=== PATIENT | male | born 1960 ===

== ENCOUNTER 2021-07-27 06:20 | Inpatient (IN) | payer SELFPAY ==
[2021-07-27] MEDS ORDERED: ONDANSETRON 4 MG/2 ML INJ IV ONE (07:27)
[2021-07-27] MEDS ORDERED: ACETAMINOPHEN 500 MG TAB PO ONE (07:27)
[2021-07-27] MEDS ORDERED: SODIUM CHLORIDE 0.9% 1000 ML 1,000 ML IV ONE (07:27)
--- NOTE | 2021-07-27 07:30 | Emergency Department Report ---
ED General Adult HPI - General Chief complaint: Weakness Stated complaint: WEAKNESS/LOSS OF APPETITE Time Seen by Provider: 07/27/21 07:17 Source: patient Mode of arrival: Ambulatory Limitations: Language Barrier - History of Present Illness Initial comments: Patient is 60 years old male with no significant past medical history according to him. Patient presented to the ER complaining of fever, cough and shortness of breath for approximately 13 days. Patient stated that he is unable to eat or drink for the last few days. Patient stated that he tested positive for Covid recently. He is complaining of epigastric abdominal pain also. - Related Data Previous Rx's Medication Instructions Recorded Last Taken Type Azithromycin [Zithromax Z-KRISTEN] 250 mg PO DAILY 1 Days tab 07/27/21 Unknown Rx Ondansetron [Zofran Odt] 4 mg PO Q8HR PRN #14 tab.rapdis 07/27/21 Unknown Rx Prednisone [predniSONE 10 mg 10 mg PO .TAPER #1 tab.ds.pk 07/27/21 Unknown Rx (6-Day Pack, 21 Tabs)] Allergies Allergy/AdvReac Type Severity Reaction Status Date / Time No Known Allergies Allergy Unverified 07/27/21 06:43 ED Review of Systems ROS: Stated complaint: WEAKNESS/LOSS OF APPETITE Other details as noted in HPI Comment: All other systems reviewed and negative Constitutional: chills, fever Respiratory: cough, shortness of breath. denies: SOB with exertion, wheezing Cardiovascular: denies: chest pain, palpitations Gastrointestinal: abdominal pain, nausea. denies: vomiting, diarrhea, constip ation, hematemesis, melena, hematochezia Musculoskeletal: denies: back pain Neurological: denies: headache, weakness ED Past Medical Hx - Past Medical History Previous Medical History?: No - Surgical History Past Surgical History?: No - Medications Home Medications: Home Medications Medication Instructions Recorded Confirmed Last Taken Type Azithromycin [Zithromax Z-KRISTEN] 250 mg PO DAILY 1 Days tab 07/27/21 Unknown Rx Ondansetron [Zofran Odt] 4 mg PO Q8HR PRN #14 tab.rapdis 07/27/21 Unknown Rx Prednisone [predniSONE 10 mg 10 mg PO .TAPER #1 tab.ds.pk 07/27/21 Unknown Rx (6-Day Pack, 21 Tabs)] ED Physical Exam - General Limitations: Language Barrier General appearance: alert, in no apparent distress - Head Head exam: Present: atraumatic, normocephalic, normal inspection - Eye Eye exam: Present: normal appearance, PERRL - ENT ENT exam: Present: mucous membranes dry - Neck Neck exam: Present: normal inspection, full ROM. Absent: tenderness, meningismus - Respiratory Respiratory exam: Present: normal lung sounds bilaterally - Cardiovascular Cardiovascular Exam: Present: regular rate, normal rhythm, normal heart sounds - GI/Abdominal GI/Abdominal exam: Present: soft, normal bowel sounds. Absent: distended, tenderness, guarding, rebound, rigid, organomegaly, mass, bruit, pulsatile mass, hernia - Extremities Exam Extremities exam: Present: normal inspection, full ROM, normal capillary refill. Absent: tenderness - Back Exam Back exam: Present: normal inspection, full ROM. Absent: CVA tenderness (R), CVA tenderness (L) - Neurological Exam Neurological exam: Present: alert, oriented X3, CN II-XII intact - Psychiatric Psychiatric exam: Present: normal mood - Skin Skin exam: Present: warm, intact, normal color ED Course Vital Signs 07/27/21 07/27/21 07/27/21 06:25 09:58 10:18 Temperature 100.0 F H 99.8 F H 100.2 F H Pulse Rate 85 86 Respiratory 18 16 26 H Rate Blood Pressure 150/78 Blood Pressure 168/92 [Left] O2 Sat by Pulse 96 93 89 Oximetry ED Medical Decision Making - Lab Data Result diagrams: 07/27/21 07:04 07/27/21 07:04 - Radiology Data Radiology results: report reviewed - Medical Decision Making Patient is 60 years old male with no significant past medical history according to him. Patient presented to the ER complaining of fever, cough and shortness of breath for approximately 13 days. Patient stated that he is unable to eat or drink for the last few days. Patient stated that he tested positive for Covid recently. He is complaining of epigastric abdominal pain also. Chest x-ray showed bilateral opacity concerning for pneumonia. Labs reviewed and is unremarkable. Patient remained stable in the ER with stable oxygen saturation of 96% on room air and above. No desaturation. Patient given prescription for Zithromax, prednisone and Zofran and advised to follow-up with his primary doctor in the next 2 to 3 days and to return to the ER if he develop any new symptoms. Unfortunately upon discharge patient noted to have an oxygen saturation of 91% and upon short walking patient oxygen saturation dropped to 88% on room air. Patient is obviously in acute respiratory failure with hypoxia tach secondary to COVID-19 pneumonia. I discussed the patient with Dr. Villalobos, she advised admit the patient to Dr. Steele. Critical Care Time: Yes Critical care time in (mins) excluding proc time.: 30 Critical care attestation.: If time is entered above; I have spent that time in minutes in the direct care of this critically ill patient, excluding procedure time. ED Disposition Clinical Impression: Generalized weakness, Acute nausea with nonbilious vomiting, Pneumonia due to COVID-19 virus, Acute respiratory failure with hypoxia Disposition: 09 ADMITTED INPATIENT Is pt being admited?: Yes Condition: Stable Instructions: Nausea, Adult, COVID-19, Fatigue, Community-Acquired Pneumonia, Adult, [id number], Bacterial Pneumonia (ED) Prescriptions: Prednisone [predniSONE 10 mg (6-Day Pack, 21 Tabs)] 10 mg PO .TAPER #1 tab.ds.pk Azithromycin [Zithromax Z-KRISTEN] 250 mg PO DAILY 1 Days tab Ondansetron [Zofran Odt] 4 mg PO Q8HR PRN #14 tab.rapdis PRN Reason: Nausea And Vomiting Referrals: PRIMARY CARE, [Primary Care Provider] - 3-5 Days
[2021-07-27 07:38] LABS: Basophils # (Auto) 0.1 K/mm3 (0.0-0.1); Basophils % (Auto) 0.7 % (0.0-1.8); Eosinophils % (Auto) 0.1 % (0.0-4.3); Hematocrit 43.3 % (35.5-45.6); Hemoglobin 14.9 gm/dl (11.8-15.2); Lymphocytes # (Auto) 1.6 K/mm3 (1.2-5.4); Lymphocytes % (Auto) 20.9 % (13.4-35.0); Mean Corpuscular HGB Conc 34 % (32-34); Mean Corpuscular Volume 93 fl (84-94); Monocytes # (Auto) 0.6 K/mm3 (0.0-0.8); Monocytes % (Auto) 7.7 % (0.0-7.3); Platelet Count 198 K/mm3 (140-440); Red Blood Count 4.66 M/mm3 (3.65-5.03); Red Cell Distribution Width 12.6 % (13.2-15.2)
[2021-07-27 07:54] LABS: Blood Urea Nitrogen 14 mg/dL (9-20); Calcium 8.3 mg/dL (8.4-10.2); Hemolysis Index 13
[2021-07-27 07:57] LABS: BUN/Creatinine Ratio 20
[2021-07-27 07:57] LABS: Alanine Aminotransferase 60 units/L (7-56); Albumin 3.5 g/dL (3.9-5); Bilirubin,Direct < 0.2 mg/dL (0-0.2)
--- NOTE | 2021-07-27 07:57 | XRay Report ---
CHEST 2 VIEWS INDICATION: Weakness. COMPARISON: None FINDINGS: Support devices: None. Heart: Within normal limits. Lungs/pleura: There are scattered bilateral airspace opacities concerning for atypical pneumonia or v iral infection. No pleural effusion or pneumothorax. Additional findings: None. IMPRESSION: Bilateral lung opacities concerning for atypical pneumonia. Signer Name: Jalen Talamantes Jr, MD Signed: 07/27/2021 7:53 AM Workstation Name: [id number]
[2021-07-27] MEDS ORDERED: oxyCODONE /ACETAMINOPHEN 5-325MG TAB PO PRN (11:21)
[2021-07-27] MEDS ORDERED: ALBUTEROL 2.5 MG/3 ML NEBU IH PRN (11:21)
[2021-07-27] MEDS ORDERED: ONDANSETRON 4 MG/2 ML INJ IV PRN (11:21)
[2021-07-27] MEDS ORDERED: DEXTROSE 50% IN WATER (25GM) 50 ML SYRINGE IV PRN (11:24)
--- NOTE | 2021-07-27 11:29 | History and Physical Report ---
History of Present Illness Date of examination: 07/27/21 Date of admission: 07/27/21 10:31 Chief complaint: Shortness of breath History of present illness: 60-year-old male with past medical history of hypertension, morbid obesity, unvaccinated for COVID-19 status presenting to the emergency department with complaint of increased shortness of breath. Patient states that symptoms started approximately 13 to 14 days ago. He tested positive for coronavirus at the time. He was advised to stay at home and recover by the physician that evaluated him. His symptoms have only gotten worse. Patient states that he has chest pain with inspiration, difficulty with exertion, unremitting fevers. On encounter, patient was resting comfortably. He stated he was feeling better than upon arrival. Of note, he denies obtaining covid 19 vaccination. ED Course: PMHx: hypertension, morbid obesity, unvaccinated for COVID-19 status PSHx: appendectomy FHx: reviewed ,noncontributory SHx: Tobacco use-denies ETOH Use-denies Recreational Drug Use-denies Past History Past Medical History: hypertension Past Surgical History: appendectomy Social history: no significant social history Family history: no significant family history Medications and Allergies Allergies Allergy/AdvReac Type Severity Reaction Status Date / Time No Known Allergies Allergy Unverified 07/27/21 06:43 Home Medications Medication Instructions Recorded Confirmed Last Taken Type Azithromycin [Zithromax Z-KRISTEN] 250 mg PO DAILY 1 Days tab 07/27/21 Unknown Rx Ondansetron [Zofran Odt] 4 mg PO Q8HR PRN #14 tab.rapdis 07/27/21 Unknown Rx Prednisone [predniSONE 10 mg 10 mg PO .TAPER #1 tab.ds.pk 07/27/21 Unknown Rx (6-Day Pack, 21 Tabs)] Active Meds: Active Medications Acetaminophen (Acetaminophen 325 Mg Tab) 650 mg PO Q4H PRN PRN Reason: Pain MILD(1-3)/Fever >100.5/ROSA Albuterol (Albuterol 2.5 Mg/3 Ml Nebu) 2.5 mg IH Q4HRT PRN PRN Reason: Shortness Of Breath Dexamethasone (Dexamethasone 4 Mg/Ml Vial) 6 mg IV Q24H MATIAS Stop: 08/06/21 11:59 Dextrose (Dextrose 50% In Water (25gm) 50 Ml Syringe) 50 ml IV Q30MIN PRN; Protocol PRN Reason: Hypoglycemia Enoxaparin Sodium (Enoxaparin 40 Mg/0.4 Ml Inj) 40 mg SUB-Q QDAY MATIAS Azithromycin (Zithromax/Ns) 500 mg in 250 mls @ 250 mls/hr IV Q24H MATIAS Ceftriaxone Sodium (Rocephin/Ns 1 Gm/50 Ml) 1 gm in 50 mls @ 100 mls/hr IV Q24H MATIAS; Protocol Sodium Chloride (Nacl 0.9% 1000 Ml) 1,000 mls @ 75 mls/hr IV DIRECT MATIAS Stop: 07/28/21 00:49 Insulin Glargine (Insulin Glargine 100 Units/Ml) 10 units SUB-Q QHS MATIAS Insulin Human Lispro (Insulin Lispro 100 Unit/Ml) 0 unit SUB-Q ACHS MATIAS; Protoc ol Ondansetron HCl (Ondansetron 4 Mg/2 Ml Inj) 4 mg IV Q8H PRN PRN Reason: Nausea And Vomiting Sodium Chloride (Sodium Chloride 0.9% 10 Ml Flush Syringe) 10 ml IV BID MATIAS Sodium Chloride (Sodium Chloride 0.9% 10 Ml Flush Syringe) 10 ml IV PRN PRN PRN Reason: LINE FLUSH Review of Systems All systems: negative Constitutional: fever Cardiovascular: chest pain, shortness of breath, dyspnea on exertion Exam - Physical Exam Narrative exam: Physical Exam: VITAL SIGNS: Reviewed. GENERAL: The patient appears normally developed, Vital signs as documented. Elevated BMI HEAD: No signs of head trauma. EYES: Pupils are equal. Extraocular motions intact. EARS: Hearing grossly intact. MOUTH: Oropharynx is normal. NECK: No adenopathy, no JVD. CHEST: Chest with clear breath sounds bilaterally. No wheezes, rales, or rhonchi. CARDIAC: Regular rate and rhythm. S1 and S2, without murmurs, gallops, or rubs. VASCULAR: No Edema. Peripheral pulses normal and equal in all extremities. ABDOMEN: Soft, non tender and non distended. No rebound or guarding, and no masses palpated. Bowel Sounds normal. MUSCULOSKELETAL: Good range of motion of all major joints. Extremities without clubbing, cyanosis or edema. NEUROLOGIC EXAM: Alert and oriented x4. no focal sensory or strength deficits. PSYCHIATRIC: Mood normal. SKIN: detail exam as documented in skin assessment - Constitutional Vitals: Temp Pulse Resp BP Pulse Ox 99.8 F H 79 24 132/67 98 07/27/21 11:15 07/27/21 11:15 07/27/21 11:15 07/27/21 11:15 07/27/21 11:15 Results - Labs CBC & Chem 7: 07/27/21 07:04 07/27/21 07:04 Labs: Laboratory Last Values WBC 7.8 K/mm3 (4.5-11.0) 07/27/21 07:04 RBC 4.66 M/mm3 (3.65-5.03) 07/27/21 07:04 Hgb 14.9 gm/dl (11.8-15.2) 07/27/21 07:04 Hct 43.3 % (35.5-45.6) 07/27/21 07:04 MCV 93 fl (84-94) 07/27/21 07:04 MCH 32 pg (28-32) 07/27/21 07:04 MCHC 34 % (32-34) 07/27/21 07:04 RDW 12.6 % (13.2-15.2) L 07/27/21 07:04 Plt Count 198 K/mm3 (140-440) 07/27/21 07:04 Lymph % (Auto) 20.9 % (13.4-35.0) 07/27/21 07:04 [place] % (Auto) 7.7 % (0.0-7.3) H 07/27/21 07:04 Eos % (Auto) 0.1 % (0.0-4.3) 07/27/21 07:04 Baso % (Auto) 0.7 % (0.0-1.8) 07/27/21 07:04 Lymph # (Auto) 1.6 K/mm3 (1.2-5.4) 07/27/21 07:04 [place] # (Auto) 0.6 K/mm3 (0.0-0.8) 07/27/21 07:04 Eos # (Auto) 0.0 K/mm3 (0.0-0.4) 07/27/21 07:04 Baso # (Auto) 0.1 K/mm3 (0.0-0.1) 07/27/21 07:04 Seg Neutrophils % 70.6 % (40.0-70.0) H 07/27/21 07:04 Seg Neutrophils # 5.5 K/mm3 (1.8-7.7) 07/27/21 07:04 Sodium 133 mmol/L (137-145) L 07/27/21 07:04 Potassium 4.0 mmol/L (3.6-5.0) 07/27/21 07:04 Chloride 100.1 mmol/L (98-107) 07/27/21 07:04 Carbon Dioxide 21 mmol/L (22-30) L 07/27/21 07:04 Anion Gap 16 mmol/L 07/27/21 07:04 BUN 14 mg/dL (9-20) 07/27/21 07:04 Creatinine 0.7 mg/dL (0.8-1.3) L 07/27/21 07:04 Estimated GFR > 60 ml/min 07/27/21 07:04 BUN/Creatinine Ratio 20 % 07/27/21 07:04 Glucose 179 mg/dL (75-100) H 07/27/21 07:04 Calcium 8.3 mg/dL (8.4-10.2) L 07/27/21 07:04 Total Bilirubin 0.40 mg/dL (0.1-1.2) 07/27/21 07:09 Direct Bilirubin < 0.2 mg/dL (0-0.2) 07/27/21 07:09 Indirect Bilirubin 0.2 mg/dL 07/27/21 07:09 AST 41 units/L (5-40) H 07/27/21 07:09 ALT 60 units/L (7-56) H 07/27/21 07:09 Alkaline Phosphatase 75 units/L (35-129) 07/27/21 07:09 Total Protein 7.1 g/dL (6.3-8.2) 07/27/21 07:09 Albumin 3.5 g/dL (3.9-5) L 07/27/21 07:09 Albumin/Globulin Ratio 1.0 % 07/27/21 07:09 Assessment and Plan Assessment and plan: #Acute hypoxic respiratory failure -Hypoxic on admission, currently requiring 2 L nasal cannula -Etiology likely COVID-19 pneumonia -Continuous telemetry and O2 saturation monitoring ordered -if patient worsens will consider pulm consultation. #COVID-19 pneumonia -CXR findings of bilateral lung opacities concerning for atypical pneumonia. -prophylactic anticoagulation based on d-dimer per hospital protocol -if procalcitonin is low, abx not needed -trend ferritin, d-dimer, CRP every 2-3 days -Decadron 6 mg IV daily x10 days ordered -Azithromycin IV/Rocephin IV -Remdesivir IV x 5 days -ID consulted will follow recommendations #Hypertension - start amlodipine 5 mg po daily and lisinopril 20 mg po daily - hydralazine 10 mg IV q6hr prn SBP > 160 #Type 2 diabetes with hyperglycemia -Hemoglobin A1c ordered -Basal bolus insulin regimen ordered Lantus 10 units nightly, sliding scale insulin ACHS #Morbid obesity -Calorie restricted diet #Advance care planning Disease education conducted, care plan discussed, diagnoses discussed, prognosis discussed, patient is full code, patient acknowledges understanding and agree with care plan, +30 minutes.
[2021-07-27] MEDS ORDERED: SODIUM CHLORIDE 0.9% 1000 ML 1,000 ML IV SCH (11:30)
--- NOTE | 2021-07-27 12:18 | Consultation ---
History of Present Illness - Reason for Consult Consult date: 07/27/21 COVID Requesting physician: BAHMAN MENON - History of Present Illness The patient is a 60-year-old male with no significant past medical history admitted with COVID-19 pneumonia. Low-grade fever. Hypoxic requiring nasal cannula at 2 L/min. Normal WBC, creatinine. Other labs pending. Review of Systems: reviewed in the chart, unable to obtain, minimize risk of transmission Medications and Allergies Allergies Allergy/AdvReac Type Severity Reaction Status Date / Time No Known Allergies Allergy Unverified 07/27/21 06:43 Home Medications Medication Instructions Recorded Confirmed Last Taken Type Azithromycin [Zithromax Z-KRISTEN] 250 mg PO DAILY 1 Days tab 07/27/21 Unknown Rx Ondansetron [Zofran Odt] 4 mg PO Q8HR PRN #14 tab.rapdis 07/27/21 Unknown Rx Prednisone [predniSONE 10 mg 10 mg PO .TAPER #1 tab.ds.pk 07/27/21 Unknown Rx (6-Day Pack, 21 Tabs)] Active Meds: Active Medications Acetaminophen (Acetaminophen 325 Mg Tab) 650 mg PO Q4H PRN PRN Reason: Pain MILD(1-3)/Fever >100.5/ROSA Albuterol (Albuterol 2.5 Mg/3 Ml Nebu) 2.5 mg IH Q4HRT PRN PRN Reason: Shortness Of Breath Dexamethasone (Dexamethasone 4 Mg/Ml Vial) 6 mg IV Q24H MATIAS Stop: 08/06/21 11:59 Dextrose (Dextrose 50% In Water (25gm) 50 Ml Syringe) 50 ml IV Q30MIN PRN; Protocol PRN Reason: Hypoglycemia Enoxaparin Sodium (Enoxaparin 40 Mg/0.4 Ml Inj) 40 mg SUB-Q QDAY MATIAS Azithromycin (Zithromax/Ns) 500 mg in 250 mls @ 250 mls/hr IV Q24H MATIAS Ceftriaxone Sodium (Rocephin/Ns 1 Gm/50 Ml) 1 gm in 50 mls @ 100 mls/hr IV Q24H MATIAS; Protocol Sodium Chloride (Nacl 0.9% 1000 Ml) 1,000 mls @ 75 mls/hr IV DIRECT MATIAS Stop: 07/28/21 00:49 REMDESIVIR 200 mg/ Sodium (Chloride) 250 mls @ 500 mls/hr IV ONCE ONE Stop: 07/27/21 12:44 REMDESIVIR 100 mg/ Sodium (Chloride) 250 mls @ 500 mls/hr IV Q24HR@2100 MATIAS Stop: 07/31/21 21:29 Insulin Glargine (Insulin Glargine 100 Units/Ml) 10 units SUB-Q QHS MATIAS Insulin Human Lispro (Insulin Lispro 100 Unit/Ml) 0 unit SUB-Q ACHS MATIAS; Protocol Ondansetron HCl (Ondansetron 4 Mg/2 Ml Inj) 4 mg IV Q8H PRN PRN Reason: Nausea And Vomiting Sodium Chloride (Sodium Chloride 0.9% 10 Ml Flush Syringe) 10 ml IV BID MATIAS Sodium Chloride (Sodium Chloride 0.9% 10 Ml Flush Syringe) 10 ml IV PRN PRN PRN Reason: LINE FLUSH Sodium Chloride (Sodium Chloride 0.9% 50 Ml Ivpb) 50 ml IV Q24HR@2100 MATIAS Stop: 07/31/21 21:01 Physical Examination - Physical Exam Narrative exam: Physical Exam (reviewed in chart to minimize risk of transmission) Constitutional: deferred Head, Ears, Nose: deferred Eyes: deferred Neck: deferred Oral: deferred Cardiovascular: deferred Respiratory: deferred GI: deferred Musculoskeletal: deferred Skin: deferred Hem/Lymphatic: deferred Psych: deferred Neurological: deferred - Constitutional Vitals: Vital Signs Temp Pulse Resp BP Pulse Ox 99.8 F H 79 24 132/67 97 07/27/21 11:39 07/27/21 11:39 07/27/21 11:39 07/27/21 11:39 07/27/21 11:39 Temperature -Last 24 Hours Temperature 99.8 F Temperature 99.8 F Temperature 100.2 F Temperature 99.8 F Temperature 100.0 F Results - Labs CBC & Chem 7: 07/27/21 07:04 07/27/21 07:04 Labs: Abnormal lab results 07/27/21 07/27/21 07/27/21 Range/Units 07:04 07:04 07:09 RDW 12.6 L (13.2-15.2) % [place] % (Auto) 7.7 H (0.0-7.3) % Seg Neutrophils % 70.6 H (40.0-70.0) % Sodium 133 L (137-145) mmol/L Carbon Dioxide 21 L (22-30) mmol/L Creatinine 0.7 L (0.8-1.3) mg/dL Glucose 179 H (75-100) mg/dL Calcium 8.3 L (8.4-10.2) mg/dL AST 41 H (5-40) units/L ALT 60 H (7-56) units/L Albumin 3.5 L (3.9-5) g/dL - Imaging and Cardiology Chest x-ray: report reviewed Assessment and Plan Cultures: SARS CoV2 PCR: Positive as outpatient. Pending here A/P: 60/M with: #Bilateral pneumonia: Secondary to COVID-19 #Acute hypoxic respiratory failure: Requiring nasal cannula #Transaminitis #Morbid Obesity Recs: -IV/PO Dexamethasone x 10 days -IV remdesivir x 5 days ordered -prophylactic anticoagulation based on d-dimer per hospital protocol -if procalcitonin is low, abx not needed -trend ferritin, d-dimer, CRP every 2-3 days Nestor Rutledge MD, FACP [facility] O: [phone] F: [phone]
[2021-07-27] MEDS: INSULIN LISPRO 100 UNIT/ML SUB-Q SCH ×3 (12:21→22:04)
[2021-07-27] MEDS: dexAMETHasone 4 MG/ML VIAL IV SCH (12:44)
[2021-07-27] MEDS: cefTRIAXone/NS 1 GM/50 ML 1 GM/50 ML BAG IV SCH (12:44)
[2021-07-27] MEDS: ENOXAPARIN 40 MG/0.4 ML INJ SUB-Q SCH (12:45)
[2021-07-27] MEDS: AZITHROMYCIN/NS 500 MG/250 ML 500 MG/250 ML BAG IV SCH (13:55)
[2021-07-27] MEDS ORDERED: REMDESIVIR 200 MG in SODIUM CHLORIDE 0.9% 250ML 250 ML IV ONE (14:00)
[2021-07-27 14:34] LABS: Bilirubin,Urine NEG (Negative); Blood,Urine NEG (Negative); Color,Urine Yellow (Yellow); Mucus,Urine FEW /HPF; Urobilinogen,Urine < 2.0 mg/dL (<2.0)
[2021-07-27 14:43] LABS: RBC,Urine < 1.0 /HPF (0.0-6.0)
[2021-07-27] MEDS: ACETAMINOPHEN 325 MG TAB PO PRN ×2 (15:55→22:04)
[2021-07-27] MEDS: SODIUM CHLORIDE 0.9% 50 ML IVPB IV SCH (15:57)
[2021-07-27] MEDS: INSULIN GLARGINE 100 UNITS/ML SUB-Q SCH (22:04)
[2021-07-28 07:44] LABS: Basophils % (Auto) 0.3 % (0.0-1.8); Hemoglobin 14.1 gm/dl (11.8-15.2); Lymphocytes # (Auto) 1.3 K/mm3 (1.2-5.4); Lymphocytes % (Auto) 24.8 % (13.4-35.0); Mean Corpuscular HGB Conc 34 % (32-34); Mean Corpuscular Volume 93 fl (84-94); Monocytes # (Auto) 0.7 K/mm3 (0.0-0.8); Monocytes % (Auto) 13.8 % (0.0-7.3); Platelet Count 217 K/mm3 (140-440); Red Cell Distribution Width 13.1 % (13.2-15.2)
--- NOTE | 2021-07-28 07:51 | Progress Note ---
Assessment and Plan Assessment and plan: Hospital course to date 07/28: Patient had low-grade fever yesterday. Still has some chest discomfort during inspiration. Inflammatory markers on labs were elevated. We will continue supportive management with antibiotics, steroids, remdesivir. Saturating in mid 90's, Continue 2 L nasal cannula. Will attempt to de-escalate tomorrow. #Acute hypoxic respiratory failure -Hypoxic on admission, currently requiring 2 L nasal cannula -Etiology likely COVID-19 pneumonia -Continuous telemetry and O2 saturation monitoring ordered -if patient worsens will consider pulm consultation. #COVID-19 pneumonia -CXR findings of bilateral lung opacities concerning for atypical pneumonia. -prophylactic anticoagulation based on d-dimer per hospital protocol -if procalcitonin is low, abx not needed -trend ferritin, d-dimer, CRP every 2-3 days -Decadron 6 mg IV daily x10 days ordered -Azithromycin IV/Rocephin IV -Remdesivir IV x 5 days -ID consulted will follow recommendations #Hypertension - start amlodipine 5 mg po daily and lisinopril 20 mg po daily - hydralazine 10 mg IV q6hr prn SBP > 160 #Transaminitis -Liver markers slightly elevated on admission likely due to underlying inflammatory process -We will trend on serial hepatic panel #Type 2 diabetes with hyperglycemia -Hemoglobin A1c ordered -Basal bolus insulin regimen ordered Lantus 10 units nightly, sliding scale insulin ACHS #Morbid obesity -Calorie restricted diet #Advance care planning Disease education conducted, care plan discussed, diagnoses discussed, prognosis discussed, patient is full code, patient acknowledges understanding and agree with care plan, +30 minutes. History Interval history: Patient states that he is feeling worse this morning. Had a low-grade fever yesterday evening. He states that breathing is difficult especially when he has to exert himself. He states that his appetite is improved a little bit. He is drinking and eating more. Hospitalist Physical - Physical exam Narrative exam: Physical Exam: VITAL SIGNS: Reviewed. GENERAL: The patient appears normally developed, Vital signs as documented. Elevated BMI. Currently on 2 L nasal cannula HEAD: No signs of head trauma. EYES: Pupils are equal. Extraocular motions intact. EARS: Hearing grossly intact. MOUTH: Oropharynx is normal. NECK: No adenopathy, no JVD. CHEST: insp ronchi. CARDIAC: Regular rate and rhythm. S1 and S2, without murmurs, gallops, or rubs. VASCULAR: No Edema. Peripheral pulses normal and equal in all extremities. ABDOMEN: Soft, non tender and non distended. No rebound or guarding, and no masses palpated. Bowel Sounds normal. MUSCULOSKELETAL: Good range of motion of all major joints. Extremities without clubbing, cyanosis or edema. NEUROLOGIC EXAM: Alert and oriented x4. no focal sensory or strength deficits. PSYCHIATRIC: Mood normal. SKIN: detail exam as documented in skin assessment - Constitutional Vitals: Temp Pulse Resp BP Pulse Ox 98.8 F 68 22 153/78 93 07/28/21 05:39 07/28/21 05:39 07/28/21 05:39 07/28/21 05:39 07/28/21 05:39 Results - Labs CBC & Chem 7: 07/28/21 07:00 07/28/21 07:00 Labs: Laboratory Last Values WBC 5.0 K/mm3 (4.5-11.0) 07/28/21 07:00 RBC 4.50 M/mm3 (3.65-5.03) 07/28/21 07:00 Hgb 14.1 gm/dl (11.8-15.2) 07/28/21 07:00 Hct 42.0 % (35.5-45.6) 07/28/21 07:00 MCV 93 fl (84-94) 07/28/21 07:00 MCH 31 pg (28-32) 07/28/21 07:00 MCHC 34 % (32-34) 07/28/21 07:00 RDW 13.1 % (13.2-15.2) L 07/28/21 07:00 Plt Count 217 K/mm3 (140-440) 07/28/21 07:00 Lymph % (Auto) 24.8 % (13.4-35.0) 07/28/21 07:00 [place] % (Auto) 13.8 % (0.0-7.3) H 07/28/21 07:00 Eos % (Auto) 0.0 % (0.0-4.3) 07/28/21 07:00 Baso % (Auto) 0.3 % (0.0-1.8) 07/28/21 07:00 Lymph # (Auto) 1.3 K/mm3 (1.2-5.4) 07/28/21 07:00 [place] # (Auto) 0.7 K/mm3 (0.0-0.8) 07/28/21 07:00 Eos # (Auto) 0.0 K/mm3 (0.0-0.4) 07/28/21 07:00 Baso # (Auto) 0.0 K/mm3 (0.0-0.1) 07/28/21 07:00 Seg Neutrophils % 61.1 % (40.0-70.0) 07/28/21 07:00 Seg Neutrophils # 3.1 K/mm3 (1.8-7.7) 07/28/21 07:00 Sodium 133 mmol/L (137-145) L 07/27/21 07:04 Potassium 4.0 mmol/L (3.6-5.0) 07/27/21 07:04 Chloride 100.1 mmol/L (98-107) 07/27/21 07:04 Carbon Dioxide 21 mmol/L (22-30) L 07/27/21 07:04 Anion Gap 16 mmol/L 07/27/21 07:04 BUN 14 mg/dL (9-20) 07/27/21 07:04 Creatinine 0.7 mg/dL (0.8-1.3) L 07/27/21 07:04 Estimated GFR > 60 ml/min 07/27/21 07:04 BUN/Creatinine Ratio 20 % 07/27/21 07:04 Glucose 179 mg/dL (75-100) H 07/27/21 07:04 POC Glucose 156 mg/dL (70-105) H 07/28/21 05:38 Hemoglobin A1c 7.4 % (4-6) H 07/27/21 07:04 Calcium 8.3 mg/dL (8.4-10.2) L 07/27/21 07:04 Total Bilirubin 0.40 mg/dL (0.1-1.2) 07/27/21 07:09 Direct Bilirubin < 0.2 mg/dL (0-0.2) 07/27/21 07:09 Indirect Bilirubin 0.2 mg/dL 07/27/21 07:09 AST 41 units/L (5-40) H 07/27/21 07:09 ALT 60 units/L (7-56) H 07/27/21 07:09 Alkaline Phosphatase 75 units/L (35-129) 07/27/21 07:09 Total Protein 7.1 g/dL (6.3-8.2) 07/27/21 07:09 Albumin 3.5 g/dL (3.9-5) L 07/27/21 07:09 Albumin/Globulin Ratio 1.0 % 07/27/21 07:09 Urine Color Yellow (Yellow) 07/27/21 13:50 Urine Turbidity Clear (Clear) 07/27/21 13:50 Urine pH 6.0 (5.0-7.0) 07/27/21 13:50 Ur Specific [place] 1.018 (1.003-1.030) 07/27/21 13:50 Urine Protein 30 mg/dl mg/dL (Negative) 07/27/21 13:50 Urine Glucose (UA) 50 mg/dL (Negative) 07/27/21 13:50 Urine Ketones Tr mg/dL (Negative) 07/27/21 13:50 Urine Blood Neg (Negative) 07/27/21 13:50 Urine Nitrite Neg (Negative) 07/27/21 13:50 Urine Bilirubin Neg (Negative) 07/27/21 13:50 Urine Urobilinogen < 2.0 mg/dL (<2.0) 07/27/21 13:50 Ur Leukocyte Esterase Neg (Negative) 07/27/21 13:50 Urine WBC (Auto) 3.0 /HPF (0.0-6.0) 07/27/21 13:50 Urine RBC (Auto) < 1.0 /HPF (0.0-6.0) 07/27/21 13:50 U Epithel Cells (Auto) < 1.0 /HPF (0-13.0) 07/27/21 13:50 Urine Mucus Few /HPF 07/27/21 13:50 Microbiology: Microbiology 07/27/21 14:08 Peripheral/Venous Blood Culture - Preliminary Culture in Progress 07/27/21 13:38 Peripheral/Venous Blood Culture - Preliminary Culture in Progress Active Medications - Current Medications Current Medications: Generic Name Dose Route Start Last Admin Trade Name Freq PRN Reason Stop Dose Admin Acetaminophen 650 mg 07/27/21 11:21 07/27/21 22:04 Acetaminophen 325 Mg Tab PO 650 mg Q4H PRN Administration Pain MILD(1-3)/Fever >100.5/ROSA Albuterol 2.5 mg 07/27/21 11:21 Albuterol 2.5 Mg/3 Ml Nebu IH Q4HRT PRN Shortness Of Breath Dexamethasone 6 mg 07/27/21 12:00 07/27/21 12:44 Dexamethasone 4 Mg/Ml Vial IV 08/06/21 11:59 6 mg Q24H MATIAS Administration Dextrose 50 ml 07/27/21 11:24 Dextrose 50% In Water (25gm) 50 Ml Syringe IV Q30MIN PRN Hypoglycemia Protocol Enoxaparin Sodium 40 mg 07/27/21 12:00 07/27/21 12:45 Enoxaparin 40 Mg/0.4 Ml Inj SUB-Q 40 mg QDAY MATIAS Administration Azithromycin 500 mg in 250 mls @ 250 mls/hr 07/27/21 12:00 07/27/21 13:55 Zithromax/Ns IV 250 mls/hr Q24H MATIAS Administration Ceftriaxone Sodium 1 gm in 50 mls @ 100 mls/hr 07/27/21 12:00 07/27/21 13:20 Rocephin/Ns 1 Gm/50 Ml IV Infused Q24H MATIAS Infusion Protocol REMDESIVIR 100 mg/ Sodium 250 mls @ 500 mls/hr 07/28/21 21:00 Chloride IV 07/31/21 21:29 Q24HR@2100 MATIAS Insulin Glargine 10 units 07/27/21 22:00 07/27/21 22:04 Insulin Glargine 100 Units/Ml SUB-Q 10 units QHS MATIAS Administration Insulin Human Lispro 0 unit 07/27/21 11:30 07/27/21 22:04 Insulin Lispro 100 Unit/Ml SUB-Q 3 unit ACHS MATIAS Administration Protocol Ondansetron HCl 4 mg 07/27/21 11:21 Ondansetron 4 Mg/2 Ml Inj IV Q8H PRN Nausea And Vomiting Sodium Chloride 10 ml 07/27/21 22:00 07/27/21 22:06 Sodium Chloride 0.9% 10 Ml Flush Syringe IV 10 ml BID MATIAS Administration Sodium Chloride 10 ml 07/27/21 11:21 Sodium Chloride 0.9% 10 Ml Flush Syringe IV PRN PRN LINE FLUSH Sodium Chloride 50 ml 07/27/21 14:00 07/27/21 15:57 Sodium Chloride 0.9% 50 Ml Ivpb IV 07/31/21 21:01 50 ml Q24HR@2100 MATIAS Administration
[2021-07-28 08:09] LABS: Alanine Aminotransferase 57 units/L (7-56); Albumin 3.8 g/dL (3.9-5); Blood Urea Nitrogen 15 mg/dL (9-20); Calcium 8.2 mg/dL (8.4-10.2); Hemolysis Index 4
[2021-07-28 08:10] LABS: BUN/Creatinine Ratio 30
--- NOTE | 2021-07-28 12:09 | Progress Note ---
Assessment and Plan Cultures: SARS CoV2 PCR: Positive as outpatient. Pending here 07/27/2021 blood culture: In process A/P: 60/M with: #Bilateral pneumonia: Secondary to COVID-19 #Acute hypoxic respiratory failure: Requiring nasal cannula #Transaminitis #Morbid Obesity Recs: -continue IV/PO Dexamethasone x 10 days -continue IV remdesivir x 5 days -prophylactic anticoagulation based on d-dimer per hospital protocol -procalcitonin is low, abx not needed -trend ferritin, d-dimer, CRP every 2-3 days Nestor Rutledge MD, FACP [facility] ([facility] O: [phone] F: [phone] Subjective Date of service: 07/28/21 Interval history: Febrile yesterday, no fever today. Remains on oxygen by nasal cannula. Procalcitonin 0.08. Objective - Exam Narrative Exam: Physical Exam (reviewed in chart to minimize risk of transmission) Constitutional: deferred Head, Ears, Nose: deferred Eyes: deferred Neck: deferred Oral: deferred Cardiovascular: deferred Respiratory: deferred GI: deferred Musculoskeletal: deferred Skin: deferred Hem/Lymphatic: deferred Psych: deferred Neurological: deferred - Constitutional Vitals: Vital Signs Temp Pulse Resp BP Pulse Ox 98.8 F 68 22 153/78 94 07/28/21 05:39 07/28/21 05:39 07/28/21 05:39 07/28/21 05:39 07/28/21 10:53 Temperature -Last 24 Hours Temperature 98.8 F Temperature 99.7 F Temperature 102.1 F - Labs CBC & Chem 7: 07/28/21 07:00 07/28/21 07:00 Labs: Abnormal lab results 07/27/21 07/27/21 07/27/21 Range/Units 07:04 12:19 16:27 RDW (13.2-15.2) % [place] % (Auto) (0.0-7.3) % D-Dimer (0-234) ng/mlDDU Creatinine (0.8-1.3) mg/dL Glucose (75-100) mg/dL POC Glucose 129 H 168 H (70-105) mg/dL Hemoglobin A1c 7.4 H (4-6) % Calcium (8.4-10.2) mg/dL Ferritin (30.0-300.0) ng/mL AST (5-40) units/L ALT (7-56) units/L C-Reactive Protein (0.00-1.30) mg/dL Albumin (3.9-5) g/dL 07/27/21 07/28/21 07/28/21 Range/Units 21:57 05:38 07:00 RDW 13.1 L (13.2-15.2) % [place] % (Auto) 13.8 H (0.0-7.3) % D-Dimer (0-234) ng/mlDDU Creatinine (0.8-1.3) mg/dL Glucose (75-100) mg/dL POC Glucose 212 H 156 H (70-105) mg/dL Hemoglobin A1c (4-6) % Calcium (8.4-10.2) mg/dL Ferritin (30.0-300.0) ng/mL AST (5-40) units/L ALT (7-56) units/L C-Reactive Protein (0.00-1.30) mg/dL Albumin (3.9-5) g/dL 07/28/21 07/28/21 07/28/21 Range/Units 07:00 07:00 07:00 RDW (13.2-15.2) % [place] % (Auto) (0.0-7.3) % D-Dimer 364.54 H (0-234) ng/mlDDU Creatinine 0.5 L (0.8-1.3) mg/dL Glucose 151 H (75-100) mg/dL POC Glucose (70-105) mg/dL Hemoglobin A1c (4-6) % Calcium 8.2 L (8.4-10.2) mg/dL Ferritin 1653.0 H (30.0-300.0) ng/mL AST 47 H (5-40) units/L ALT 57 H (7-56) units/L C-Reactive Protein 15.80 H (0.00-1.30) mg/dL Albumin 3.8 L (3.9-5) g/dL 07/28/21 07/28/21 Range/Units 07:50 11:07 RDW (13.2-15.2) % [place] % (Auto) (0.0-7.3) % D-Dimer (0-234) ng/mlDDU Creatinine (0.8-1.3) mg/dL Glucose (75-100) mg/dL POC Glucose 138 H 151 H (70-105) mg/dL Hemoglobin A1c (4-6) % Calcium (8.4-10.2) mg/dL Ferritin (30.0-300.0) ng/mL AST (5-40) units/L ALT (7-56) units/L C-Reactive Protein (0.00-1.30) mg/dL Albumin (3.9-5) g/dL
[2021-07-28] MEDS: cefTRIAXone/NS 1 GM/50 ML 1 GM/50 ML BAG IV SCH (12:30)
[2021-07-28] MEDS: AZITHROMYCIN/NS 500 MG/250 ML 500 MG/250 ML BAG IV SCH (12:31)
--- NOTE | 2021-07-28 18:58 | Electrocardiograph Report ---
[facility] Test Date: 2021-07-27 Test Time: 07:03:16 Pat Name: MONTSERRAT RANDLE Department: Room: A354 Gender: M [employer]: BETHANY : 1960 Requested By: BELINDA GIRARD Order Number: [id number] Reading MD: Juan F Muller Measurements Intervals [place] Rate: 68 P: 36 AK: 133 QRS: -33 QRSD: 80 T: 24 QT: 393 QTc: 420 Interpretive Statements Sinus rhythm Frequent PVCs Left axis deviation No previous ECG available for comparison Electronically Signed On 07-28-2021 18:58:07 EDT by Juan F Muller
[2021-07-28] MEDS: SODIUM CHLORIDE 0.9% 50 ML IVPB IV SCH (21:41)
[2021-07-28] MEDS: REMDESIVIR 100 MG in SODIUM CHLORIDE 0.9% 250ML 250 ML IV SCH (21:41)
[2021-07-28] MEDS: INSULIN GLARGINE 100 UNITS/ML SUB-Q SCH (21:42)
[2021-07-28] MEDS: INSULIN LISPRO 100 UNIT/ML SUB-Q SCH (21:42)
[2021-07-28] MEDS: ACETAMINOPHEN 325 MG TAB PO PRN (21:45)
[2021-07-29 07:00] LABS: Alanine Aminotransferase 59 units/L (7-56); Albumin 3.7 g/dL (3.9-5); Blood Urea Nitrogen 18 mg/dL (9-20); Calcium 8.4 mg/dL (8.4-10.2); Hemolysis Index 19
[2021-07-29 07:16] LABS: BUN/Creatinine Ratio 30
--- NOTE | 2021-07-29 07:39 | Progress Note ---
Assessment and Plan Assessment and plan: Hospital course to date 07/28: Patient had low-grade fever yesterday. Still has some chest discomfort during inspiration. Inflammatory markers on labs were elevated. We will continue supportive management with antibiotics, steroids, remdesivir. Saturating in mid 90's, Continue 2 L nasal cannula. Will attempt to de-escalate tomorrow. #Acute hypoxic respiratory failure -Hypoxic on admission, currently requiring 2 L nasal cannula -Etiology likely COVID-19 pneumonia -Continuous telemetry and O2 saturation monitoring ordered -if patient worsens will consider pulm consultation. #COVID-19 pneumonia -CXR findings of bilateral lung opacities concerning for atypical pneumonia. -prophylactic anticoagulation based on d-dimer per hospital protocol -if procalcitonin is low, abx not needed -trend ferritin, d-dimer, CRP every 2-3 days -Decadron 6 mg IV daily x10 days ordered -Azithromycin IV/Rocephin IV -Remdesivir IV x 5 days -ID consulted will follow recommendations #Hypertension - start amlodipine 5 mg po daily and lisinopril 20 mg po daily - hydralazine 10 mg IV q6hr prn SBP > 160 #Transaminitis -Liver markers slightly elevated on admission likely due to underlying inflammatory process -We will trend on serial hepatic panel #Type 2 diabetes with hyperglycemia -Hemoglobin A1c ordered -Basal bolus insulin regimen ordered Lantus 10 units nightly, sliding scale insulin ACHS #Morbid obesity -Calorie restricted diet #Advance care planning Disease education conducted, care plan discussed, diagnoses discussed, prognosis discussed, patient is full code, patient acknowledges understanding and agree with care plan, +30 minutes. Hospitalist Physical - Physical exam Narrative exam: Physical Exam: VITAL SIGNS: Reviewed. GENERAL: The patient appears normally developed, Vital signs as documented. Elevated BMI. Currently on 2 L nasal cannula HEAD: No signs of head trauma. EYES: Pupils are equal. Extraocular motions intact. EARS: Hearing grossly intact. MOUTH: Oropharynx is normal. NECK: No adenopathy, no JVD. CHEST: insp ronchi. CARDIAC: Regular rate and rhythm. S1 and S2, without murmurs, gallops, or rubs. VASCULAR: No Edema. Peripheral pulses normal and equal in all extremities. ABDOMEN: Soft, non tender and non distended. No rebound or guarding, and no masses palpated. Bowel Sounds normal. MUSCULOSKELETAL: Good range of motion of all major joints. Extremities without clubbing, cyanosis or edema. NEUROLOGIC EXAM: Alert and oriented x4. no focal sensory or strength deficits. PSYCHIATRIC: Mood normal. SKIN: detail exam as documented in skin assessment - Constitutional Vitals: Temp Pulse Resp BP Pulse Ox 98.1 F 70 20 134/68 96 07/28/21 23:37 07/28/21 23:37 07/28/21 23:37 07/28/21 23:37 07/29/21 02:07 Results - Labs CBC & Chem 7: 07/28/21 07:00 07/29/21 06:05 Labs: Laboratory Last Values WBC 5.0 K/mm3 (4.5-11.0) 07/28/21 07:00 RBC 4.50 M/mm3 (3.65-5.03) 07/28/21 07:00 Hgb 14.1 gm/dl (11.8-15.2) 07/28/21 07:00 Hct 42.0 % (35.5-45.6) 07/28/21 07:00 MCV 93 fl (84-94) 07/28/21 07:00 MCH 31 pg (28-32) 07/28/21 07:00 MCHC 34 % (32-34) 07/28/21 07:00 RDW 13.1 % (13.2-15.2) L 07/28/21 07:00 Plt Count 217 K/mm3 (140-440) 07/28/21 07:00 Lymph % (Auto) 24.8 % (13.4-35.0) 07/28/21 07:00 [place] % (Auto) 13.8 % (0.0-7.3) H 07/28/21 07:00 Eos % (Auto) 0.0 % (0.0-4.3) 07/28/21 07:00 Baso % (Auto) 0.3 % (0.0-1.8) 07/28/21 07:00 Lymph # (Auto) 1.3 K/mm3 (1.2-5.4) 07/28/21 07:00 [place] # (Auto) 0.7 K/mm3 (0.0-0.8) 07/28/21 07:00 Eos # (Auto) 0.0 K/mm3 (0.0-0.4) 07/28/21 07:00 Baso # (Auto) 0.0 K/mm3 (0.0-0.1) 07/28/21 07:00 Seg Neutrophils % 61.1 % (40.0-70.0) 07/28/21 07:00 Seg Neutrophils # 3.1 K/mm3 (1.8-7.7) 07/28/21 07:00 D-Dimer 364.54 ng/mlDDU (0-234) H 07/28/21 07:00 Sodium 143 mmol/L (137-145) 07/29/21 06:05 Potassium 4.2 mmol/L (3.6-5.0) 07/29/21 06:05 Chloride 105.5 mmol/L (98-107) 07/29/21 06:05 Carbon Dioxide 24 mmol/L (22-30) 07/29/21 06:05 Anion Gap 18 mmol/L 07/29/21 06:05 BUN 18 mg/dL (9-20) 07/29/21 06:05 Creatinine 0.6 mg/dL (0.8-1.3) L 07/29/21 06:05 Estimated GFR > 60 ml/min 07/29/21 06:05 BUN/Creatinine Ratio 30 % 07/29/21 06:05 Glucose 101 mg/dL (75-100) H 07/29/21 06:05 POC Glucose 146 mg/dL (70-105) H 07/28/21 21:39 Hemoglobin A1c 7.4 % (4-6) H 07/27/21 07:04 Calcium 8.4 mg/dL (8.4-10.2) 07/29/21 06:05 Ferritin 1653.0 ng/mL (30.0-300.0) H 07/28/21 07:00 Total Bilirubin 0.30 mg/dL (0.1-1.2) 07/29/21 06:05 Direct Bilirubin < 0.2 mg/dL (0-0.2) 07/27/21 07:09 Indirect Bilirubin 0.2 mg/dL 07/27/21 07:09 AST 51 units/L (5-40) H 07/29/21 06:05 ALT 59 units/L (7-56) H 07/29/21 06:05 Alkaline Phosphatase 66 units/L (35-129) 07/29/21 06:05 C-Reactive Protein 15.80 mg/dL (0.00-1.30) H 07/28/21 07:00 Total Protein 7.4 g/dL (6.3-8.2) 07/29/21 06:05 Albumin 3.7 g/dL (3.9-5) L 07/29/21 06:05 Albumin/Globulin Ratio 1.0 % 07/29/21 06:05 Procalcitonin 0.08 ng/mL (<0.15) 07/28/21 07:00 Urine Color Yellow (Yellow) 07/27/21 13:50 Urine Turbidity Clear (Clear) 07/27/21 13:50 Urine pH 6.0 (5.0-7.0) 07/27/21 13:50 Ur Specific [place] 1.018 (1.003-1.030) 07/27/21 13:50 Urine Protein 30 mg/dl mg/dL (Negative) 07/27/21 13:50 Urine Glucose (UA) 50 mg/dL (Negative) 07/27/21 13:50 Urine Ketones Tr mg/dL (Negative) 07/27/21 13:50 Urine Blood Neg (Negative) 07/27/21 13:50 Urine Nitrite Neg (Negative) 07/27/21 13:50 Urine Bilirubin Neg (Negative) 07/27/21 13:50 Urine Urobilinogen < 2.0 mg/dL (<2.0) 07/27/21 13:50 Ur Leukocyte Esterase Neg (Negative) 07/27/21 13:50 Urine WBC (Auto) 3.0 /HPF (0.0-6.0) 07/27/21 13:50 Urine RBC (Auto) < 1.0 /HPF (0.0-6.0) 07/27/21 13:50 U Epithel Cells (Auto) < 1.0 /HPF (0-13.0) 07/27/21 13:50 Urine Mucus Few /HPF 07/27/21 13:50 Coronavirus (PCR) Positive (Negative) A 07/28/21 08:00 Microbiology: Microbiology 07/27/21 14:08 Peripheral/Venous Blood Culture - Preliminary NO GROWTH AFTER 24 HOURS 07/27/21 13:38 Peripheral/Venous Blood Culture - Preliminary NO GROWTH AFTER 24 HOURS Active Medications - Current Medications Current Medications: Generic Name Dose Route Start Last Admin Trade Name Freq PRN Reason Stop Dose Admin Acetaminophen 650 mg 07/27/21 11:21 07/28/21 21:45 Acetaminophen 325 Mg Tab PO 650 mg Q4H PRN Administration Pain MILD(1-3)/Fever >100.5/ROSA Albuterol 2.5 mg 07/27/21 11:21 Albuterol 2.5 Mg/3 Ml Nebu IH Q4HRT PRN Shortness Of Breath Dexamethasone 6 mg 07/27/21 12:00 07/27/21 12:44 Dexamethasone 4 Mg/Ml Vial IV 08/06/21 11:59 6 mg Q24H MATIAS Administration Dextrose 50 ml 07/27/21 11:24 Dextrose 50% In Water (25gm) 50 Ml Syringe IV Q30MIN PRN Hypoglycemia Protocol Enoxaparin Sodium 40 mg 07/27/21 12:00 07/27/21 12:45 Enoxaparin 40 Mg/0.4 Ml Inj SUB-Q 40 mg QDAY MATIAS Administration REMDESIVIR 100 mg/ Sodium 250 mls @ 500 mls/hr 07/28/21 21:00 07/28/21 21:41 Chloride IV 07/31/21 21:29 500 mls/hr Q24HR@2100 MATIAS Administration Insulin Glargine 10 units 07/27/21 22:00 07/28/21 21:42 Insulin Glargine 100 Units/Ml SUB-Q 10 units QHS MATIAS Administration Insulin Human Lispro 0 unit 07/27/21 11:30 07/28/21 21:42 Insulin Lispro 100 Unit/Ml SUB-Q Not Given ACHS MATIAS Protocol Ondansetron HCl 4 mg 07/27/21 11:21 Ondansetron 4 Mg/2 Ml Inj IV Q8H PRN Nausea And Vomiting Sodium Chloride 10 ml 07/27/21 22:00 07/28/21 21:42 Sodium Chloride 0.9% 10 Ml Flush Syringe IV 10 ml BID MATIAS Administration Sodium Chloride 10 ml 07/27/21 11:21 Sodium Chloride 0.9% 10 Ml Flush Syringe IV PRN PRN LINE FLUSH Sodium Chloride 50 ml 07/27/21 14:00 07/28/21 21:41 Sodium Chloride 0.9% 50 Ml Ivpb IV 07/31/21 21:01 50 ml Q24HR@2100 MATIAS Administration
--- NOTE | 2021-07-29 07:46 | Discharge Summary ---
Providers - Providers Date of Admission: 07/27/21 10:31 Date of discharge: 07/29/21 Attending physician: BAHMAN MENON MD 07/27/21 11:21 Consult to Physician [CONS] Routine Comment: Consulting Provider: DAVID PALACIOS Physician Instructions: Reason For Exam: covid 19 pneumonia 07/28/21 07:49 Consult to Case Management [CONS] Routine Services Needed at Discharge: Home O2 Notified:: GERTRUDE Primary care physician: [facility] Hospitalization Reason for admission: weak, short of breath Condition: Stable Hospital course: Hospital course to date 07/28: Patient had low-grade fever yesterday. Still has some chest discomfort during inspiration. Inflammatory markers on labs were elevated. We will con tinue supportive management with antibiotics, steroids, remdesivir. Saturating in mid 90's, Continue 2 L nasal cannula. Will attempt to de-escalate tomorrow. 07/29: saturating in mid 90's on room air. Resting comfortably, no distress. oral intake has improved. plan to discharge home. Will send home on remainder of zithromax course and medrol zohra. Advised to follow up with primary care doctor in 3-5 days. #Acute hypoxic respiratory failure -Hypoxic on admission, currently requiring 2 L nasal cannula -Etiology likely COVID-19 pneumonia -Continuous telemetry and O2 saturation monitoring ordered -if patient worsens will consider pulm consultation. #COVID-19 pneumonia -CXR findings of bilateral lung opacities concerning for atypical pneumonia. -prophylactic anticoagulation based on d-dimer per hospital protocol -if procalcitonin is low, abx not needed -trend ferritin, d-dimer, CRP every 2-3 days -Decadron 6 mg IV daily x10 days ordered -Azithromycin IV/Rocephin IV -Remdesivir IV x 5 days -ID consulted will follow recommendations #Hypertension - start amlodipine 5 mg po daily and lisinopril 20 mg po daily - hydralazine 10 mg IV q6hr prn SBP > 160 #Transaminitis -Liver markers slightly elevated on admission likely due to underlying inflammatory process -We will trend on serial hepatic panel #Type 2 diabetes with hyperglycemia -Hemoglobin A1c ordered -Basal bolus insulin regimen ordered Lantus 10 units nightly, sliding scale insulin ACHS #Morbid obesity -Calorie restricted diet #Advance care planning Disease education conducted, care plan discussed, diagnoses discussed, prognosis discussed, patient is full code, patient acknowledges understanding and agree with care plan, +30 minutes. Disposition: 30 STILL A PATIENT Final Discharge Diagnosis (Prints w/discharge instructions): COVID 19 Pneumonia. Time spent for discharge: 35 - Discharge Diagnoses (1) Acute nausea with nonbilious vomiting Status: Acute (2) Generalized weakness Status: Acute (3) Pneumonia due to COVID-19 virus Status: Acute Core Measure Documentation - Palliative Care Palliative Care/ Comfort Measures: Not Applicable - Core Measures Any of the following diagnoses?: none Exam - Physical Exam Narrative exam: Physical Exam: VITAL SIGNS: Reviewed. GENERAL: The patient appears normally developed, Vital signs as documented. Elevated BMI. Currently on room air HEAD: No signs of head trauma. EYES: Pupils are equal. Extraocular motions intact. EARS: Hearing grossly intact. MOUTH: Oropharynx is normal. NECK: No adenopathy, no JVD. CHEST: insp ronchi. CARDIAC: Regular rate and rhythm. S1 and S2, without murmurs, gallops, or rubs. VASCULAR: No Edema. Peripheral pulses normal and equal in all extremities. ABDOMEN: Soft, non tender and non distended. No rebound or guarding, and no masses palpated. Bowel Sounds normal. MUSCULOSKELETAL: Good range of motion of all major joints. Extremities without clubbing, cyanosis or edema. NEUROLOGIC EXAM: Alert and oriented x4. no focal sensory or strength deficits. PSYCHIATRIC: Mood normal. SKIN: detail exam as documented in skin assessment - Constitutional Vitals: Temp Pulse Resp BP Pulse Ox 98.1 F 70 20 134/68 96 07/28/21 23:37 07/28/21 23:37 07/28/21 23:37 07/28/21 23:37 07/29/21 02:07 Plan Follow up with: PRIMARY MD JOANN [Primary Care Provider] - 3-5 Days
[2021-07-29] MEDS: INSULIN LISPRO 100 UNIT/ML SUB-Q SCH ×4 (09:00→22:36)
[2021-07-29 09:12] LABS: Basophils % (Auto) 0.3 % (0.0-1.8); Eosinophils % (Auto) 0.3 % (0.0-4.3); Hematocrit 43.1 % (35.5-45.6); Hemoglobin 14.6 gm/dl (11.8-15.2); Lymphocytes # (Auto) 2.5 K/mm3 (1.2-5.4); Lymphocytes % (Auto) 31.9 % (13.4-35.0); Mean Corpuscular HGB Conc 34 % (32-34); Mean Corpuscular Volume 94 fl (84-94); Monocytes # (Auto) 0.9 K/mm3 (0.0-0.8); Monocytes % (Auto) 11.7 % (0.0-7.3); Platelet Count 233 K/mm3 (140-440); Red Blood Count 4.58 M/mm3 (3.65-5.03); Red Cell Distribution Width 13.1 % (13.2-15.2)
[2021-07-29 09:45] LABS: C-Reactive Protein 7.6 mg/dL (0.00-1.30)
[2021-07-29] MEDS: ENOXAPARIN 40 MG/0.4 ML INJ SUB-Q SCH (09:47)
--- NOTE | 2021-07-29 13:13 | Event Note ---
Date: 07/29/21 Paged by RUBIA Burkett regarding patient. She states that patient oxygenation was 83% on room air and 81% with ambulation. He did develop cough and some respiratory distress. We will cancel the discharge. Pulmonary consultation was placed.
[2021-07-29] MEDS: dexAMETHasone 4 MG/ML VIAL IV SCH (13:30)
--- NOTE | 2021-07-29 13:46 | Progress Note ---
Assessment and Plan Cultures: SARS CoV2 PCR: Positive 07/27/2021 blood culture: no growth A/P: 60/M with: #Bilateral pneumonia: Secondary to COVID-19 #Acute hypoxic respiratory failure: remains on nasal cannula #Transaminitis #Morbid Obesity Recs: -continue IV/PO Dexamethasone x 10 days -continue IV remdesivir x 5 days -prophylactic anticoagulation based on d-dimer per hospital protocol -trend ferritin, d-dimer, CRP every 2-3 days -wean oxygen as tolerated ID will sign off. Please call with questions. Nestor Rutledge MD, FACP [facility] O: [phone] F: [phone] Subjective Date of service: 07/29/21 Interval history: No fever. Failed ambulatory sat test. Remains on oxygen by nasal cannula. Objective - Exam Narrative Exam: Physical Exam (reviewed in chart to minimize risk of transmission) Constitutional: deferred Head, Ears, Nose: deferred Eyes: deferred Neck: deferred Oral: deferred Cardiovascular: deferred Respiratory: deferred GI: deferred Musculoskeletal: deferred Skin: deferred Hem/Lymphatic: deferred Psych: deferred Neurological: deferred - Constitutional Vitals: Vital Signs Temp Pulse Resp BP Pulse Ox 98.1 F 70 20 134/68 92 07/28/21 23:37 07/28/21 23:37 07/28/21 23:37 07/28/21 23:37 07/29/21 09:45 Temperature -Last 24 Hours Temperature 98.1 F Temperature 98.3 F Temperature 98.8 F - Labs CBC & Chem 7: 07/29/21 08:37 07/29/21 06:05 Labs: Abnormal lab results 07/28/21 07/28/21 07/28/21 Range/Units 08:00 15:10 21:14 RDW (13.2-15.2) % [place] % (Auto) (0.0-7.3) % [place] # (Auto) (0.0-0.8) K/mm3 D-Dimer (0-234) ng/mlDDU Creatinine (0.8-1.3) mg/dL Glucose (75-100) mg/dL POC Glucose 127 H 140 H (70-105) mg/dL Ferritin (30.0-300.0) ng/mL AST (5-40) units/L ALT (7-56) units/L Lactate Dehydrogenase (91-180) units/L C-Reactive Protein (0.00-1.30) mg/dL Albumin (3.9-5) g/dL Coronavirus (PCR) Positive A (Negative) 07/28/21 07/29/21 07/29/21 Range/Units 21:39 06:05 08:37 RDW 13.1 L (13.2-15.2) % [place] % (Auto) 11.7 H (0.0-7.3) % [place] # (Auto) 0.9 H (0.0-0.8) K/mm3 D-Dimer (0-234) ng/mlDDU Creatinine 0.6 L (0.8-1.3) mg/dL Glucose 101 H (75-100) mg/dL POC Glucose 146 H (70-105) mg/dL Ferritin (30.0-300.0) ng/mL AST 51 H (5-40) units/L ALT 59 H (7-56) units/L Lactate Dehydrogenase (91-180) units/L C-Reactive Protein (0.00-1.30) mg/dL Albumin 3.7 L (3.9-5) g/dL Coronavirus (PCR) (Negative) 07/29/21 07/29/21 07/29/21 Range/Units 08:37 08:37 08:37 RDW (13.2-15.2) % [place] % (Auto) (0.0-7.3) % [place] # (Auto) (0.0-0.8) K/mm3 D-Dimer 374.09 H (0-234) ng/mlDDU Creatinine (0.8-1.3) mg/dL Glucose (75-100) mg/dL POC Glucose (70-105) mg/dL Ferritin 1601.0 H (30.0-300.0) ng/mL AST (5-40) units/L ALT (7-56) units/L Lactate Dehydrogenase 527 H (91-180) units/L C-Reactive Protein 7.60 H (0.00-1.30) mg/dL Albumin (3.9-5) g/dL Coronavirus (PCR) (Negative)
[2021-07-29] MEDS: INSULIN GLARGINE 100 UNITS/ML SUB-Q SCH (22:35)
[2021-07-29] MEDS: REMDESIVIR 100 MG in SODIUM CHLORIDE 0.9% 250ML 250 ML IV SCH (22:35)
[2021-07-29] MEDS: SODIUM CHLORIDE 0.9% 50 ML IVPB IV SCH (23:10)
[2021-07-30 08:06] LABS: Alanine Aminotransferase 61 units/L (7-56); Albumin 3.6 g/dL (3.9-5); Blood Urea Nitrogen 20 mg/dL (9-20); Calcium 8.3 mg/dL (8.4-10.2); Hemolysis Index 3
--- NOTE | 2021-07-30 08:06 | Progress Note ---
Assessment and Plan Assessment and plan: History of present illness: 60-year-old male with past medical history of hypertension, morbid obesity, unvaccinated for COVID-19 status presenting to the emergency department with complaint of increased shortness of breath. Patient states that symptoms started approximately 13 to 14 days ago. He tested positive for coronavirus at the time. He was advised to stay at home and recover by the physician that evaluated him. His symptoms have only gotten worse. Patient states that he has chest pain with inspiration, difficulty with exertion, unremitting fevers. On encounter, patient was resting comfortably. He stated he was feeling better than upon arrival. Admitted to med/surg floor for covid 19 pneumonia. Hospital course to date 07/28: Patient had low-grade fever yesterday. Still has some chest discomfort during inspiration. Inflammatory markers on labs were elevated. We will continue supportive management with antibiotics, steroids, remdesivir. Saturating in mid 90's, Continue 2 L nasal cannula. Will attempt to de-escalate tomorrow. 07/29: saturating in mid 90's on room air. Resting comfortably, no distress. oral intake has improved. plan was originally to discharge home however patient desaturated at the time of walking O2 test to low 80's and RN stated that patient was have some difficulty recovering from test. Patient was acutely in distress, coughing and subsequently required 4 L NC. Given patient's 15 day history of covid 19 and concern for worsening, d/c was cancelled and consultation placed for pulmonology for further evaluation. CRP, ferritin, d- dimer, CMP, CXR ordered for AM. 07/30: Clinically worsened. currently on 3L O2 NC. CXR demonstrates worsening of bilateral infiltrates from admission CXR. Lasix 40 mg IV x 1 dose ordered. Follow pulmology recs. Given patient prolongued course with covid 19 pna, elevated BMI, risk factors with HTN,DM2, he is high risk for sudden deterioration. Will continue supportive management in the hospital. Assessment and plan #Acute hypoxic respiratory failure -Hypoxic on admission, currently requiring 2 L nasal cannula -Etiology likely COVID-19 pneumonia -Continuous telemetry and O2 saturation monitoring ordered -if patient worsens will consider pulm consultation. #COVID-19 pneumonia -CXR findings of bilateral lung opacities concerning for atypical pneumonia. -prophylactic anticoagulation based on d-dimer per hospital protocol -if procalcitonin is low, abx not needed -trend ferritin, d-dimer, CRP every 2-3 days -Decadron 6 mg IV daily x10 days ordered -Azithromycin IV/Rocephin IV -Remdesivir IV x 5 days -ID consulted will follow recommendations #Hypertension - start amlodipine 5 mg po daily and lisinopril 20 mg po daily - hydralazine 10 mg IV q6hr prn SBP > 160 #Transaminitis -Liver markers slightly elevated on admission likely due to underlying inflammatory process -We will trend on serial hepatic panel #Type 2 diabetes with hyperglycemia -Hemoglobin A1c ordered -Basal bolus insulin regimen ordered Lantus 10 units nightly, sliding scale insulin ACHS #Morbid obesity -Calorie restricted diet #Advance care planning Disease education conducted, care plan discussed, diagnoses discussed, prognosis discussed, patient is full code, patient acknowledges understanding and agree with care plan, +30 minutes. - Patient Problems (1) Acute nausea with nonbilious vomiting Current Visit: Yes Status: Acute (2) Generalized weakness Current Visit: Yes Status: Acute (3) Pneumonia due to COVID-19 virus Current Visit: Yes Status: Acute History Interval history: patient states he feels better. However, remains on nasal cannula 3L with sats in low to mid 90's. Hospitalist Physical - Physical exam Narrative exam: Physical Exam: VITAL SIGNS: Reviewed. GENERAL: The patient appears normally developed, Vital signs as documented. Elevated BMI. Currently on 3L NC HEAD: No signs of head trauma. EYES: Pupils are equal. Extraocular motions intact. EARS: Hearing grossly intact. MOUTH: Oropharynx is normal. NECK: No adenopathy, no JVD. CHEST: insp ronchi. CARDIAC: Regular rate and rhythm. S1 and S2, without murmurs, gallops, or rubs. VASCULAR: No Edema. Peripheral pulses normal and equal in all extremities. ABDOMEN: Soft, non tender and non distended. No rebound or guarding, and no masses palpated. Bowel Sounds normal. MUSCULOSKELETAL: Good range of motion of all major joints. Extremities without clubbing, cyanosis or edema. NEUROLOGIC EXAM: Alert and oriented x4. no focal sensory or strength deficits. PSYCHIATRIC: Mood normal. SKIN: detail exam as documented in skin assessment - Constitutional Vitals: Temp Pulse Resp BP Pulse Ox 98.5 F 63 18 156/74 93 07/30/21 06:10 07/30/21 06:10 07/30/21 06:10 07/30/21 06:10 07/30/21 06:10 Results - Labs CBC & Chem 7: 07/29/21 08:37 07/30/21 06:25 Labs: Laboratory Last Values WBC 7.7 K/mm3 (4.5-11.0) 07/29/21 08:37 RBC 4.58 M/mm3 (3.65-5.03) 07/29/21 08:37 Hgb 14.6 gm/dl (11.8-15.2) 07/29/21 08:37 Hct 43.1 % (35.5-45.6) 07/29/21 08:37 MCV 94 fl (84-94) 07/29/21 08:37 MCH 32 pg (28-32) 07/29/21 08:37 MCHC 34 % (32-34) 07/29/21 08:37 RDW 13.1 % (13.2-15.2) L 07/29/21 08:37 Plt Count 233 K/mm3 (140-440) 07/29/21 08:37 Lymph % (Auto) 31.9 % (13.4-35.0) 07/29/21 08:37 [place] % (Auto) 11.7 % (0.0-7.3) H 07/29/21 08:37 Eos % (Auto) 0.3 % (0.0-4.3) 07/29/21 08:37 Baso % (Auto) 0.3 % (0.0-1.8) 07/29/21 08:37 Lymph # (Auto) 2.5 K/mm3 (1.2-5.4) 07/29/21 08:37 [place] # (Auto) 0.9 K/mm3 (0.0-0.8) H 07/29/21 08:37 Eos # (Auto) 0.0 K/mm3 (0.0-0.4) 07/29/21 08:37 Baso # (Auto) 0.0 K/mm3 (0.0-0.1) 07/29/21 08:37 Seg Neutrophils % 55.8 % (40.0-70.0) 07/29/21 08:37 Seg Neutrophils # 4.3 K/mm3 (1.8-7.7) 07/29/21 08:37 D-Dimer 304.19 ng/mlDDU (0-234) H 07/30/21 06:25 Sodium 143 mmol/L (137-145) 07/29/21 06:05 Potassium 4.2 mmol/L (3.6-5.0) 07/29/21 06:05 Chloride 105.5 mmol/L (98-107) 07/29/21 06:05 Carbon Dioxide 24 mmol/L (22-30) 07/29/21 06:05 Anion Gap 18 mmol/L 07/29/21 06:05 BUN 18 mg/dL (9-20) 07/29/21 06:05 Creatinine 0.6 mg/dL (0.8-1.3) L 07/29/21 06:05 Estimated GFR > 60 ml/min 07/29/21 06:05 BUN/Creatinine Ratio 30 % 07/29/21 06:05 Glucose 101 mg/dL (75-100) H 07/29/21 06:05 POC Glucose 202 mg/dL (70-105) H 07/29/21 21:03 Hemoglobin A1c 7.4 % (4-6) H 07/27/21 07:04 Calcium 8.4 mg/dL (8.4-10.2) 07/29/21 06:05 Ferritin 1601.0 ng/mL (30.0-300.0) H 07/29/21 08:37 Total Bilirubin 0.30 mg/dL (0.1-1.2) 07/29/21 06:05 Direct Bilirubin < 0.2 mg/dL (0-0.2) 07/27/21 07:09 Indirect Bilirubin 0.2 mg/dL 07/27/21 07:09 AST 51 units/L (5-40) H 07/29/21 06:05 ALT 59 units/L (7-56) H 07/29/21 06:05 Alkaline Phosphatase 66 units/L (35-129) 07/29/21 06:05 Lactate Dehydrogenase 527 units/L (91-180) H 07/29/21 08:37 C-Reactive Protein 7.60 mg/dL (0.00-1.30) H 07/29/21 08:37 Total Protein 7.4 g/dL (6.3-8.2) 07/29/21 06:05 Albumin 3.7 g/dL (3.9-5) L 07/29/21 06:05 Albumin/Globulin Ratio 1.0 % 07/29/21 06:05 Procalcitonin 0.08 ng/mL (<0.15) 07/28/21 07:00 Urine Color Yellow (Yellow) 07/27/21 13:50 Urine Turbidity Clear (Clear) 07/27/21 13:50 Urine pH 6.0 (5.0-7.0) 07/27/21 13:50 Ur Specific Murphy 1.018 (1.003-1.030) 07/27/21 13:50 Urine Protein 30 mg/dl mg/dL (Negative) 07/27/21 13:50 Urine Glucose (UA) 50 mg/dL (Negative) 07/27/21 13:50 Urine Ketones Tr mg/dL (Negative) 07/27/21 13:50 Urine Blood Neg (Negative) 07/27/21 13:50 Urine Nitrite Neg (Negative) 07/27/21 13:50 Urine Bilirubin Neg (Negative) 07/27/21 13:50 Urine Urobilinogen < 2.0 mg/dL (<2.0) 07/27/21 13:50 Ur Leukocyte Esterase Neg (Negative) 07/27/21 13:50 Urine WBC (Auto) 3.0 /HPF (0.0-6.0) 07/27/21 13:50 Urine RBC (Auto) < 1.0 /HPF (0.0-6.0) 07/27/21 13:50 U Epithel Cells (Auto) < 1.0 /HPF (0-13.0) 07/27/21 13:50 Urine Mucus Few /HPF 07/27/21 13:50 Coronavirus (PCR) Positive (Negative) A 07/28/21 08:00 Microbiology: Microbiology 07/27/21 14:08 Peripheral/Venous Blood Culture - Preliminary NO GROWTH AFTER 48 HOURS 07/27/21 13:38 Peripheral/Venous Blood Culture - Preliminary NO GROWTH AFTER 48 HOURS Hogan/IV: Voiding Method Urinal Active Medications - Current Medications Current Medications: Generic Name Dose Route Start Last Admin Trade Name Freq PRN Reason Stop Dose Admin Acetaminophen 650 mg 07/27/21 11:21 07/28/21 21:45 Acetaminophen 325 Mg Tab PO 650 mg Q4H PRN Administration Pain MILD(1-3)/Fever >100.5/ROSA Albuterol 2.5 mg 07/27/21 11:21 Albuterol 2.5 Mg/3 Ml Nebu IH Q4HRT PRN Shortness Of Breath Dexamethasone 6 mg 07/27/21 12:00 07/29/21 13:30 Dexamethasone 4 Mg/Ml Vial IV 08/06/21 11:59 6 mg Q24H MATIAS Administration Dextrose 50 ml 07/27/21 11:24 Dextrose 50% In Water (25gm) 50 Ml Syringe IV Q30MIN PRN Hypoglycemia Protocol Enoxaparin Sodium 40 mg 07/27/21 12:00 07/29/21 09:47 Enoxaparin 40 Mg/0.4 Ml Inj SUB-Q 40 mg QDAY MATIAS Administration REMDESIVIR 100 mg/ Sodium 250 mls @ 500 mls/hr 07/28/21 21:00 07/29/21 22:35 Chloride IV 07/31/21 21:29 500 mls/hr Q24HR@2100 MATIAS Administration Insulin Glargine 10 units 07/27/21 22:00 07/29/21 22:35 Insulin Glargine 100 Units/Ml SUB-Q 10 units QHS MATIAS Administration Insulin Human Lispro 0 unit 07/27/21 11:30 07/29/21 22:36 Insulin Lispro 100 Unit/Ml SUB-Q 3 unit ACHS MATIAS Administration Protocol Ondansetron HCl 4 mg 07/27/21 11:21 Ondansetron 4 Mg/2 Ml Inj IV Q8H PRN Nausea And Vomiting Sodium Chloride 10 ml 07/27/21 22:00 07/29/21 22:36 Sodium Chloride 0.9% 10 Ml Flush Syringe IV 10 ml BID MATIAS Administration Sodium Chloride 10 ml 07/27/21 11:21 Sodium Chloride 0.9% 10 Ml Flush Syringe IV PRN PRN LINE FLUSH Sodium Chloride 50 ml 07/27/21 14:00 07/29/21 23:10 Sodium Chloride 0.9% 50 Ml Ivpb IV 07/31/21 21:01 50 ml Q24HR@2100 MATIAS Administration
[2021-07-30] MEDS: INSULIN LISPRO 100 UNIT/ML SUB-Q SCH ×7 (08:23→23:44)
[2021-07-30 08:27] LABS: BUN/Creatinine Ratio 40
[2021-07-30] MEDS ORDERED: FUROSEMIDE 40 MG/4 ML INJ IV SCH (09:00)
--- NOTE | 2021-07-30 09:04 | XRay Report ---
XR chest 1V ap INDICATION / CLINICAL INFORMATION: covid 19 pna. COMPARISON: 07/27/2021 FINDINGS: SUPPORT DEVICES: Unchanged. HEART /PULMONARY VASCULATURE: Unchanged. LUNGS / PLEURA: Low lung volumes remain with moderate patchy airspace opacities, unchanged from prior study. No sizable pleural effusion. No pneumothorax. IMPRESSION: 1. No significant interval change. Signer Name: Gabino Matos MD Signed: 07/30/2021 9:00 AM Workstation Name: [id number]
[2021-07-30] MEDS: ENOXAPARIN 40 MG/0.4 ML INJ SUB-Q SCH (09:56)
--- NOTE | 2021-07-30 10:39 | Consultation ---
History of Present Illness Consult date: 07/30/21 Requesting physician: BAHMAN MENON Reason for consult: hypoxemia, other (COVID pneumonia) History of present illness: 60 y/o male with COVID pneumonia and acute respiratory failure. Past History Past Medical History: hypertension Past Surgical History: appendectomy Social history: no significant social history Family history: no significant family history Medications and Allergies Allergies Allergy/AdvReac Type Severity Reaction Status Date / Time No Known Allergies Allergy Unverified 07/27/21 06:43 Home Medications Medication Instructions Recorded Confirmed Last Taken Type amLODIPine 5 mg PO DAILY 07/27/21 07/27/21 07/27/21 17:57 History Azithromycin [Zithromax TAB] 250 mg PO QDAY 3 Days #3 tablet 07/29/21 Unknown Rx methylPREDNISolone [Medrol 4MG 4 mg PO DAILY 6 Days #21 tab.ds.pk 07/29/21 Unknown Rx DOSEPAK (21 tabs)] Active Meds: Active Medications Acetaminophen (Acetaminophen 325 Mg Tab) 650 mg PO Q4H PRN PRN Reason: Pain MILD(1-3)/Fever >100.5/ROSA Last Admin: 07/28/21 21:45 Dose: 650 mg Documented by: Albuterol (Albuterol 2.5 Mg/3 Ml Nebu) 2.5 mg IH Q4HRT PRN PRN Reason: Shortness Of Breath Dexamethasone (Dexamethasone 4 Mg/Ml Vial) 6 mg IV Q24H [facility] Stop: 08/06/21 11:59 Last Admin: 07/29/21 13:30 Dose: 6 mg Documented by: Dextrose (Dextrose 50% In Water (25gm) 50 Ml Syringe) 50 ml IV Q30MIN PRN; Protocol PRN Reason: Hypoglycemia Enoxaparin Sodium (Enoxaparin 40 Mg/0.4 Ml Inj) 40 mg SUB-Q QDAY [facility] Last Admin: 07/30/21 09:56 Dose: 40 mg Documented by: Furosemide (Furosemide 40 Mg/4 Ml Inj) 40 mg IV ONCE@0900 [facility] Stop: 07/30/21 13:00 Last Admin: 07/30/21 09:55 Dose: 40 mg Documented by: REMDESIVIR 100 mg/ Sodium (Chloride) 250 mls @ 500 mls/hr IV Q24HR@2100 [facility] Stop: 07/31/21 21:29 Last Admin: 07/29/21 22:35 Dose: 500 mls/hr Documented by: Insulin Glargine (Insulin Glargine 100 Units/Ml) 10 units SUB-Q QHS [facility] Last Admin: 07/29/21 22:35 Dose: 10 units Documented by: Insulin Human Lispro (Insulin Lispro 100 Unit/Ml) 0 unit SUB-Q ACHS [facility]; Protocol Last Admin: 07/30/21 08:23 Dose: Not Given Documented by: Ondansetron HCl (Ondansetron 4 Mg/2 Ml Inj) 4 mg IV Q8H PRN PRN Reason: Nausea And Vomiting Sodium Chloride (Sodium Chloride 0.9% 10 Ml Flush Syringe) 10 ml IV BID [facility] Last Admin: 07/30/21 09:56 Dose: 10 ml Documented by: Sodium Chloride (Sodium Chloride 0.9% 10 Ml Flush Syringe) 10 ml IV PRN PRN PRN Reason: LINE FLUSH Sodium Chloride (Sodium Chloride 0.9% 50 Ml Ivpb) 50 ml IV Q24HR@2100 [facility] Stop: 07/31/21 21:01 Last Admin: 07/29/21 23:10 Dose: 50 ml Documented by: Physical Examination Vital signs: Vital Signs Temp Pulse Resp BP Pulse Ox 100.0 F H 85 18 168/92 96 07/27/21 06:25 07/27/21 06:25 07/27/21 06:25 07/27/21 06:25 07/27/21 06:25 Results - Laboratory Findings CBC and BMP: 07/29/21 08:37 07/30/21 06:25 PT/INR, D-dimer D-Dimer 304.19 ng/mlDDU (0-234) H 07/30/21 06:25 Abnormal lab findings: Abnormal Labs 07/27/21 07/27/21 07/27/21 07:04 07:04 07:04 RDW 12.6 L Johnson % (Auto) 7.7 H Johnson # (Auto) Seg Neutrophils % 70.6 H D-Dimer Sodium 133 L Carbon Dioxide 21 L Creatinine 0.7 L Glucose 179 H POC Glucose Hemoglobin A1c 7.4 H Calcium 8.3 L Ferritin AST ALT Lactate Dehydrogenase C-Reactive Protein Albumin Coronavirus (PCR) 07/27/21 07/27/21 07/27/21 07:09 12:19 16:27 RDW Johnson % (Auto) Johnson # (Auto) Seg Neutrophils % D-Dimer Sodium Carbon Dioxide Creatinine Glucose POC Glucose 129 H 168 H Hemoglobin A1c Calcium Ferritin AST 41 H ALT 60 H Lactate Dehydrogenase C-Reactive Protein Albumin 3.5 L Coronavirus (PCR) 07/27/21 07/28/21 07/28/21 21:57 05:38 07:00 RDW 13.1 L Johnson % (Auto) 13.8 H Johnson # (Auto) Seg Neutrophils % D-Dimer Sodium Carbon Dioxide Creatinine Glucose POC Glucose 212 H 156 H Hemoglobin A1c Calcium Ferritin AST ALT Lactate Dehydrogenase C-Reactive Protein Albumin Coronavirus (PCR) 07/28/21 07/28/21 07/28/21 07:00 07:00 07:00 RDW Johnson % (Auto) Johnson # (Auto) Seg Neutrophils % D-Dimer 364.54 H Sodium Carbon Dioxide Creatinine 0.5 L Glucose 151 H POC Glucose Hemoglobin A1c Calcium 8.2 L Ferritin 1653.0 H AST 47 H ALT 57 H Lactate Dehydrogenase C-Reactive Protein 15.80 H Albumin 3.8 L Coronavirus (PCR) 07/28/21 07/28/21 07/28/21 07:50 08:00 11:07 RDW Johnson % (Auto) Johnson # (Auto) Seg Neutrophils % D-Dimer Sodium Carbon Dioxide Creatinine Glucose POC Glucose 138 H 151 H Hemoglobin A1c Calcium Ferritin AST ALT Lactate Dehydrogenase C-Reactive Protein Albumin Coronavirus (PCR) Positive A 07/28/21 07/28/21 07/28/21 15:10 21:14 21:39 RDW Johnson % (Auto) Johnson # (Auto) Seg Neutrophils % D-Dimer Sodium Carbon Dioxide Creatinine Glucose POC Glucose 127 H 140 H 146 H Hemoglobin A1c Calcium Ferritin AST ALT Lactate Dehydrogenase C-Reactive Protein Albumin Coronavirus (PCR) 07/29/21 07/29/21 07/29/21 06:05 08:37 08:37 RDW 13.1 L Johnson % (Auto) 11.7 H Johnson # (Auto) 0.9 H Seg Neutrophils % D-Dimer 374.09 H Sodium Carbon Dioxide Creatinine 0.6 L Glucose 101 H POC Glucose Hemoglobin A1c Calcium Ferritin AST 51 H ALT 59 H Lactate Dehydrogenase C-Reactive Protein Albumin 3.7 L Coronavirus (PCR) 07/29/21 07/29/21 07/29/21 08:37 08:37 21:03 RDW Johnson % (Auto) Johnson # (Auto) Seg Neutrophils % D-Dimer Sodium Carbon Dioxide Creatinine Glucose POC Glucose 202 H Hemoglobin A1c Calcium Ferritin 1601.0 H AST ALT Lactate Dehydrogenase 527 H C-Reactive Protein 7.60 H Albumin Coronavirus (PCR) 07/30/21 07/30/21 07/30/21 06:25 06:25 06:25 RDW Johnson % (Auto) Johnson # (Auto) Seg Neutrophils % D-Dimer 304.19 H Sodium Carbon Dioxide Creatinine 0.5 L Glucose 153 H POC Glucose Hemoglobin A1c Calcium 8.3 L Ferritin 1421.0 H AST 46 H ALT 61 H Lactate Dehydrogenase 372 H C-Reactive Protein 6.60 H Albumin 3.6 L Coronavirus (PCR) - Diagnostic Findings Chest x-ray: image reviewed (CXR this am appears worse than admission, however could be different penetrations on the film) Assessment and Plan 60 y/o obese male with acute respiratory failure secondary to COVID pneumonia, now worsening hypoxemia. Patient was stable on room air and now requiring 3 liters NC, suggest the followin. Agree with one time dose of lasix 2. Prone as tolerated 3. If oxygen requirement continues to increase may need to increase steroids to BID given patient size 4. Monitor fluid intake 5. Continue Remdesivir. 6. Guarded prognosis
[2021-07-30] MEDS: dexAMETHasone 4 MG/ML VIAL IV SCH (14:45)
[2021-07-30] MEDS: REMDESIVIR 100 MG in SODIUM CHLORIDE 0.9% 250ML 250 ML IV SCH (22:03)
[2021-07-30] MEDS: SODIUM CHLORIDE 0.9% 50 ML IVPB IV SCH (22:03)
[2021-07-30] MEDS: ACETAMINOPHEN 325 MG TAB PO PRN (22:04)
[2021-07-30] MEDS: INSULIN GLARGINE 100 UNITS/ML SUB-Q SCH (23:27)
[2021-07-30] MEDS: amLODIPine 5 MG TAB PO SCH (23:29)
--- NOTE | 2021-07-31 08:52 | Progress Note ---
Assessment and Plan 60 y/o obese male with acute respiratory failure secondary to COVID pneumonia, now worsening hypoxemia. 07/31/21: Will give lasix again today. Continue daily steroids. If maintains stablilty on 3 liters will need to walk likely Tuesday or Tuesday to assess oxygen neds. Continue remdesivir. Prone. Guarded prognosis. Patient was stable on room air and now requiring 3 liters NC, suggest the followin. Agree with one time dose of lasix 2. Prone as tolerated 3. If oxygen requirement continues to increase may need to increase steroids to BID given patient size 4. Monitor fluid intake 5. Continue Remdesivir. 6. Guarded prognosis Subjective Date of service: 07/31/21 Interval history: No acute events. I/O not accurate so not sure how well patient did with lasix. Sats are stable. Objective Vital Signs - 12hr 07/30/21 07/30/21 07/30/21 22:00 22:04 22:11 Temperature 98.5 F Pulse Rate 70 Respiratory 19 18 18 Rate Blood Pressure 138/80 O2 Sat by Pulse 93 93 Oximetry 07/30/21 07/30/21 07/31/21 23:04 23:29 04:19 Temperature 97.5 F L Pulse Rate 70 63 Respiratory 19 20 Rate Blood Pressure 160/82 137/71 O2 Sat by Pulse 94 Oximetry CBC and BMP: 07/29/21 08:37 07/30/21 06:25 ABG, PT/INR, D-dimer: PT/INR, D-dimer D-Dimer 304.19 ng/mlDDU (0-234) H 07/30/21 06:25 Abnormal lab findings: Abnormal Labs 07/27/21 07/27/21 07/27/21 07:04 07:04 07:04 RDW 12.6 L Hood % (Auto) 7.7 H Hood # (Auto) Seg Neutrophils % 70.6 H D-Dimer Sodium 133 L Carbon Dioxide 21 L Creatinine 0.7 L Glucose 179 H POC Glucose Hemoglobin A1c 7.4 H Calcium 8.3 L Ferritin AST ALT Lactate Dehydrogenase C-Reactive Protein Albumin Coronavirus (PCR) 07/27/21 07/27/21 07/27/21 07:09 12:19 16:27 RDW [place] % (Auto) [place] # (Auto) Seg Neutrophils % D-Dimer Sodium Carbon Dioxide Creatinine Glucose POC Glucose 129 H 168 H Hemoglobin A1c Calcium Ferritin AST 41 H ALT 60 H Lactate Dehydrogenase C-Reactive Protein Albumin 3.5 L Coronavirus (PCR) 07/27/21 07/28/21 07/28/21 21:57 05:38 07:00 RDW 13.1 L [place] % (Auto) 13.8 H [place] # (Auto) Seg Neutrophils % D-Dimer Sodium Carbon Dioxide Creatinine Glucose POC Glucose 212 H 156 H Hemoglobin A1c Calcium Ferritin AST ALT Lactate Dehydrogenase C-Reactive Protein Albumin Coronavirus (PCR) 07/28/21 07/28/21 07/28/21 07:00 07:00 07:00 RDW [place] % (Auto) [place] # (Auto) Seg Neutrophils % D-Dimer 364.54 H Sodium Carbon Dioxide Creatinine 0.5 L Glucose 151 H POC Glucose Hemoglobin A1c Calcium 8.2 L Ferritin 1653.0 H AST 47 H ALT 57 H Lactate Dehydrogenase C-Reactive Protein 15.80 H Albumin 3.8 L Coronavirus (PCR) 07/28/21 07/28/21 07/28/21 07:50 08:00 11:07 RDW [place] % (Auto) [place] # (Auto) Seg Neutrophils % D-Dimer Sodium Carbon Dioxide Creatinine Glucose POC Glucose 138 H 151 H Hemoglobin A1c Calcium Ferritin AST ALT Lactate Dehydrogenase C-Reactive Protein Albumin Coronavirus (PCR) Positive A 07/28/21 07/28/21 07/28/21 15:10 21:14 21:39 RDW [place] % (Auto) [place] # (Auto) Seg Neutrophils % D-Dimer Sodium Carbon Dioxide Creatinine Glucose POC Glucose 127 H 140 H 146 H Hemoglobin A1c Calcium Ferritin AST ALT Lactate Dehydrogenase C-Reactive Protein Albumin Coronavirus (PCR) 07/29/21 07/29/21 07/29/21 06:05 08:37 08:37 RDW 13.1 L [place] % (Auto) 11.7 H [place] # (Auto) 0.9 H Seg Neutrophils % D-Dimer 374.09 H Sodium Carbon Dioxide Creatinine 0.6 L Glucose 101 H POC Glucose Hemoglobin A1c Calcium Ferritin AST 51 H ALT 59 H Lactate Dehydrogenase C-Reactive Protein Albumin 3.7 L Coronavirus (PCR) 07/29/21 07/29/21 07/29/21 08:37 08:37 21:03 RDW [place] % (Auto) [place] # (Auto) Seg Neutrophils % D-Dimer Sodium Carbon Dioxide Creatinine Glucose POC Glucose 202 H Hemoglobin A1c Calcium Ferritin 1601.0 H AST ALT Lactate Dehydrogenase 527 H C-Reactive Protein 7.60 H Albumin Coronavirus (PCR) 07/30/21 07/30/21 07/30/21 06:25 06:25 06:25 RDW [place] % (Auto) [place] # (Auto) Seg Neutrophils % D-Dimer 304.19 H Sodium Carbon Dioxide Creatinine 0.5 L Glucose 153 H POC Glucose Hemoglobin A1c Calcium 8.3 L Ferritin 1421.0 H AST 46 H ALT 61 H Lactate Dehydrogenase 372 H C-Reactive Protein 6.60 H Albumin 3.6 L Coronavirus (PCR) 07/30/21 07/30/21 07/30/21 10:59 15:51 22:12 RDW [place] % (Auto) [place] # (Auto) Seg Neutrophils % D-Dimer Sodium Carbon Dioxide Creatinine Glucose POC Glucose 231 H 149 H 218 H Hemoglobin A1c Calcium Ferritin AST ALT Lactate Dehydrogenase C-Reactive Protein Albumin Coronavirus (PCR) 07/31/21 07:19 RDW [place] % (Auto) [place] # (Auto) Seg Neutrophils % D-Dimer Sodium Carbon Dioxide Creatinine Glucose POC Glucose 168 H Hemoglobin A1c Calcium Ferritin AST ALT Lactate Dehydrogenase C-Reactive Protein Albumin Coronavirus (PCR)
[2021-07-31] MEDS: ENOXAPARIN 40 MG/0.4 ML INJ SUB-Q SCH (09:19)
[2021-07-31] MEDS: amLODIPine 5 MG TAB PO SCH (09:19)
[2021-07-31] MEDS: INSULIN LISPRO 100 UNIT/ML SUB-Q SCH ×4 (09:21→22:29)
[2021-07-31] MEDS ORDERED: FUROSEMIDE 40 MG/4 ML INJ IV NR (09:30)
[2021-07-31] MEDS: dexAMETHasone 4 MG/ML VIAL IV SCH (11:10)
--- NOTE | 2021-07-31 16:18 | Progress Note ---
Assessment and Plan Assessment and plan: 60-year-old male with past medical history of hypertension, morbid obesity, unvaccinated for COVID-19 status presenting to the emergency department with complaint of increased shortness of breath. Patient states that symptoms started approximately 13 to 14 days ago. He tested positive for coronavirus at the time. He was advised to stay at home and recover by the physician that evaluated him. His symptoms have only gotten worse. Patient states that he has chest pain with inspiration, difficulty with exertion, unremitting fevers. On encounter, patient was resting comfortably. He stated he was feeling better than upon arrival. Admitted to med/surg floor for covid 19 pneumonia. Hospital course to date 07/28: Patient had low-grade fever yesterday. Still has some chest discomfort during inspiration. Inflammatory markers on labs were elevated. We will continue supportive management with antibiotics, steroids, remdesivir. Saturating in mid 90's, Continue 2 L nasal cannula. Will attempt to de-escalate tomorrow. 07/29: saturating in mid 90's on room air. Resting comfortably, no distress. oral intake has improved. plan was originally to discharge home however patient desaturated at the time of walking O2 test to low 80's and RN stated that patient was have some difficulty recovering from test. Patient was acutely in distress, coughing and subsequently required 4 L NC. Given patient's 15 day history of covid 19 and concern for worsening, d/c was cancelled and consultation placed for pulmonology for further evaluation. CRP, ferritin, d- dimer, CMP, CXR ordered for AM. 07/30: Clinically worsened. currently on 3L O2 NC. CXR demonstrates worsening of bilateral infiltrates from admission CXR. Lasix 40 mg IV x 1 dose ordered. Follow pulmology recs. Given patient prolongued course with covid 19 pna, elevated BMI, risk factors with HTN,DM2, he is high risk for sudden deterioration. Will continue supportive management in the hospital. Assessment and plan #Acute hypoxic respiratory failure -Hypoxic on admission, currently requiring 2 L nasal cannula -Etiology likely COVID-19 pneumonia -Continuous telemetry and O2 saturation monitoring ordered -if patient worsens will consider pulm consultation. #COVID-19 pneumonia -CXR findings of bilateral lung opacities concerning for atypical pneumonia. -prophylactic anticoagulation based on d-dimer per hospital protocol -if procalcitonin is low, abx not needed -trend ferritin, d-dimer, CRP every 2-3 days -Decadron 6 mg IV daily x10 days ordered -Azithromycin IV/Rocephin IV -Remdesivir IV x 5 days -ID consulted will follow recommendations #Hypertension - start amlodipine 5 mg po daily and lisinopril 20 mg po daily - hydralazine 10 mg IV q6hr prn SBP > 160 #Transaminitis -Liver markers slightly elevated on admission likely due to underlying inflammatory process -We will trend on serial hepatic panel #Type 2 diabetes with hyperglycemia -Hemoglobin A1c ordered -Basal bolus insulin regimen ordered Lantus 10 units nightly, sliding scale insulin ACHS #Morbid obesity -Calorie restricted diet #Advance care planning Disease education conducted, care plan discussed, diagnoses discussed, prognosis discussed, patient is full code, patient acknowledges understanding and agree with care plan, +30 minutes. - Patient Problems (1) Acute nausea with nonbilious vomiting Current Visit: Yes Status: Acute (2) Generalized weakness Current Visit: Yes Status: Acute (3) Pneumonia due to COVID-19 virus Current Visit: Yes Status: Acute Hospitalist Physical - Constitutional Vitals: Temp Pulse Resp BP Pulse Ox 98.0 F 83 18 147/76 95 07/31/21 11:31 07/31/21 11:31 07/31/21 11:31 07/31/21 11:31 07/31/21 14:49 Results - Labs CBC & Chem 7: 07/29/21 08:37 07/30/21 06:25 Labs: Laboratory Last Values WBC 7.7 K/mm3 (4.5-11.0) 07/29/21 08:37 RBC 4.58 M/mm3 (3.65-5.03) 07/29/21 08:37 Hgb 14.6 gm/dl (11.8-15.2) 07/29/21 08:37 Hct 43.1 % (35.5-45.6) 07/29/21 08:37 MCV 94 fl (84-94) 07/29/21 08:37 MCH 32 pg (28-32) 07/29/21 08:37 MCHC 34 % (32-34) 07/29/21 08:37 RDW 13.1 % (13.2-15.2) L 07/29/21 08:37 Plt Count 233 K/mm3 (140-440) 07/29/21 08:37 Lymph % (Auto) 31.9 % (13.4-35.0) 07/29/21 08:37 [place] % (Auto) 11.7 % (0.0-7.3) H 07/29/21 08:37 Eos % (Auto) 0.3 % (0.0-4.3) 07/29/21 08:37 Baso % (Auto) 0.3 % (0.0-1.8) 07/29/21 08:37 Lymph # (Auto) 2.5 K/mm3 (1.2-5.4) 07/29/21 08:37 [place] # (Auto) 0.9 K/mm3 (0.0-0.8) H 07/29/21 08:37 Eos # (Auto) 0.0 K/mm3 (0.0-0.4) 07/29/21 08:37 Baso # (Auto) 0.0 K/mm3 (0.0-0.1) 07/29/21 08:37 Seg Neutrophils % 55.8 % (40.0-70.0) 07/29/21 08:37 Seg Neutrophils # 4.3 K/mm3 (1.8-7.7) 07/29/21 08:37 D-Dimer 304.19 ng/mlDDU (0-234) H 07/30/21 06:25 Sodium 139 mmol/L (137-145) 07/30/21 06:25 Potassium 3.9 mmol/L (3.6-5.0) 07/30/21 06:25 Chloride 103.6 mmol/L (98-107) 07/30/21 06:25 Carbon Dioxide 25 mmol/L (22-30) 07/30/21 06:25 Anion Gap 14 mmol/L 07/30/21 06:25 BUN 20 mg/dL (9-20) 07/30/21 06:25 Creatinine 0.5 mg/dL (0.8-1.3) L 07/30/21 06:25 Estimated GFR > 60 ml/min 07/30/21 06:25 BUN/Creatinine Ratio 40 % 07/30/21 06:25 Glucose 153 mg/dL (75-100) H 07/30/21 06:25 POC Glucose 196 mg/dL (70-105) H 07/31/21 15:45 Hemoglobin A1c 7.4 % (4-6) H 07/27/21 07:04 Calcium 8.3 mg/dL (8.4-10.2) L 07/30/21 06:25 Ferritin 1421.0 ng/mL (30.0-300.0) H 07/30/21 06:25 Total Bilirubin 0.40 mg/dL (0.1-1.2) 07/30/21 06:25 Direct Bilirubin < 0.2 mg/dL (0-0.2) 07/27/21 07:09 Indirect Bilirubin 0.2 mg/dL 07/27/21 07:09 AST 46 units/L (5-40) H 07/30/21 06:25 ALT 61 units/L (7-56) H 07/30/21 06:25 Alkaline Phosphatase 68 units/L (35-129) 07/30/21 06:25 Lactate Dehydrogenase 372 units/L (91-180) H 07/30/21 06:25 C-Reactive Protein 6.60 mg/dL (0.00-1.30) H 07/30/21 06:25 Total Protein 7.3 g/dL (6.3-8.2) 07/30/21 06:25 Albumin 3.6 g/dL (3.9-5) L 07/30/21 06:25 Albumin/Globulin Ratio 1.0 % 07/30/21 06:25 Procalcitonin 0.08 ng/mL (<0.15) 07/28/21 07:00 Urine Color Yellow (Yellow) 07/27/21 13:50 Urine Turbidity Clear (Clear) 07/27/21 13:50 Urine pH 6.0 (5.0-7.0) 07/27/21 13:50 Ur Specific [place] 1.018 (1.003-1.030) 07/27/21 13:50 Urine Protein 30 mg/dl mg/dL (Negative) 07/27/21 13:50 Urine Glucose (UA) 50 mg/dL (Negative) 07/27/21 13:50 Urine Ketones Tr mg/dL (Negative) 07/27/21 13:50 Urine Blood Neg (Negative) 07/27/21 13:50 Urine Nitrite Neg (Negative) 07/27/21 13:50 Urine Bilirubin Neg (Negative) 07/27/21 13:50 Urine Urobilinogen < 2.0 mg/dL (<2.0) 07/27/21 13:50 Ur Leukocyte Esterase Neg (Negative) 07/27/21 13:50 Urine WBC (Auto) 3.0 /HPF (0.0-6.0) 07/27/21 13:50 Urine RBC (Auto) < 1.0 /HPF (0.0-6.0) 07/27/21 13:50 U Epithel Cells (Auto) < 1.0 /HPF (0-13.0) 07/27/21 13:50 Urine Mucus Few /HPF 07/27/21 13:50 Coronavirus (PCR) Positive (Negative) A 07/28/21 08:00 Microbiology: Microbiology 07/27/21 14:08 Peripheral/Venous Blood Culture - Preliminary NO GROWTH AFTER 4 DAYS 07/27/21 13:38 Peripheral/Venous Blood Culture - Preliminary NO GROWTH AFTER 4 DAYS Hogan/IV: Voiding Method Toilet Active Medications - Current Medications Current Medications: Generic Name Dose Route Start Last Admin Trade Name Freq PRN Reason Stop Dose Admin Acetaminophen 650 mg 07/27/21 11:21 07/30/21 22:04 Acetaminophen 325 Mg Tab PO 650 mg Q4H PRN Administration Pain MILD(1-3)/Fever >100.5/ROSA Albuterol 2.5 mg 07/27/21 11:21 Albuterol 2.5 Mg/3 Ml Nebu IH Q4HRT PRN Shortness Of Breath Amlodipine Besylate 5 mg 07/30/21 22:30 07/31/21 09:19 Amlodipine 5 Mg Tab PO 5 mg QDAY MATIAS Administration Dexamethasone 6 mg 07/27/21 12:00 07/31/21 11:10 Dexamethasone 4 Mg/Ml Vial IV 08/06/21 11:59 6 mg Q24H MATIAS Administration Dextrose 50 ml 07/27/21 11:24 Dextrose 50% In Water (25gm) 50 Ml Syringe IV Q30MIN PRN Hypoglycemia Protocol Enoxaparin Sodium 40 mg 07/27/21 12:00 07/31/21 09:19 Enoxaparin 40 Mg/0.4 Ml Inj SUB-Q 40 mg QDAY MATIAS Administration REMDESIVIR 100 mg/ Sodium 250 mls @ 500 mls/hr 07/28/21 21:00 07/30/21 22:03 Chloride IV 07/31/21 21:29 500 mls/hr Q24HR@2100 MATIAS Administration Insulin Glargine 10 units 07/27/21 22:00 07/30/21 23:27 Insulin Glargine 100 Units/Ml SUB-Q 10 units QHS MATIAS Administration Insulin Human Lispro 0 unit 07/27/21 11:30 07/31/21 16:06 Insulin Lispro 100 Unit/Ml SUB-Q 2 unit ACHS MATIAS Administration Protocol Ondansetron HCl 4 mg 07/27/21 11:21 Ondansetron 4 Mg/2 Ml Inj IV Q8H PRN Nausea And Vomiting Sodium Chloride 10 ml 07/27/21 22:00 07/31/21 09:20 Sodium Chloride 0.9% 10 Ml Flush Syringe IV 10 ml BID MATIAS Administration Sodium Chloride 10 ml 07/27/21 11:21 Sodium Chloride 0.9% 10 Ml Flush Syringe IV PRN PRN LINE FLUSH Sodium Chloride 50 ml 07/27/21 14:00 07/30/21 22:03 Sodium Chloride 0.9% 50 Ml Ivpb IV 07/31/21 21:01 50 ml Q24HR@2100 MATIAS Administration
--- NOTE | 2021-07-31 16:25 | Progress Note ---
Assessment and Plan Assessment and plan: Assessment and plan --Acute hypoxic respiratory failure Hypoxic on admission, currently requiring 2 L nasal cannula Etiology likely COVID-19 pneumonia Continuous telemetry and O2 saturation monitoring ordered if patient worsens will consider pulm consultation. --COVID-19 pneumonia CXR findings of bilateral lung opacities concerning for atypical pneumonia. prophylactic anticoagulation based on d-dimer per hospital protocol Procalcitonin is low, empiric antibiotics discontinued Follow inflammatory markers Continue Decadron 6 mg IV daily x10 days ordered Remdesivir IV x 5 days ID evaluated the patient and signed off --Hypertension Well-controlled, continue current antihypertensives And as needed hydralazine --Transaminitis Liver markers slightly elevated on admission likely due to Covid related We will trend on serial hepatic panel --Type 2 diabetes with hyperglycemia Hemoglobin A1c 7.4 Accu-Chek sliding scale coverage ADA diet long-acting insulin Lantus 10 units nightly --Morbid obesity BMI 38.0 Advised diet modification exercise as tolerated and weight reduction When medically stable, patient verbalized understanding --DVT prophylaxis; subcu Lovenox We will closely monitor the patient and adjust the management as needed Plan of care reviewed with the patient and his nurse as well as the case configuration management consultant recommendations noted and appreciated --Advance care planning Disease education conducted, care plan discussed, diagnoses discussed, prognosis discussed, patient is full code, patient acknowledges understanding and agree with care plan, +30 minutes. DC planning per case management Brief history and hospital course: 60-year-old male with past medical history of hypertension, morbid obesity, unvaccinated for COVID-19 status presenting to the emergency department with complaint of increased shortness of breath. Patient states that symptoms started approximately 13 to 14 days ago. He tested positive for coronavirus at the time. He was advised to stay at home and recover by the physician that evaluated him. His symptoms have only gotten worse. Patient states that he has chest pain with inspiration, difficulty with exertion, unremitting fevers. On encounter, patient was resting comfortably. He stated he was feeling better than upon arrival. Admitted to med/surg floor for covid 19 pneumonia. Hospital course to date 07/28: Patient had low-grade fever yesterday. Still has some chest discomfort during inspiration. Inflammatory markers on labs were elevated. We will continue supportive management with antibiotics, steroids, remdesivir. Saturating in mid 90's, Continue 2 L nasal cannula. Will attempt to de-escalate tomorrow. 07/29: saturating in mid 90's on room air. Resting comfortably, no distress. oral intake has improved. plan was originally to discharge home however patient desaturated at the time of walking O2 test to low 80's and RN stated that patient was have some difficulty recovering from test. Patient was acutely in distress, coughing and subsequently required 4 L NC. Given patient's 15 day history of covid 19 and concern for worsening, d/c was cancelled and consultation placed for pulmonology for further evaluation. CRP, ferritin, d- dimer, CMP, CXR ordered for AM. 07/30: Clinically worsened. currently on 3L O2 NC. CXR demonstrates worsening of bilateral infiltrates from admission CXR. Lasix 40 mg IV x 1 dose ordered. Follow pulmology recs. Given patient prolongued course with covid 19 pna, elevated BMI, risk factors with HTN,DM2, he is high risk for sudden deterioration. Will continue supportive management in the hospital. 07/31/2021; Home O2 evaluation and home O2 set up, complete 10 days of steroids and 5 days of remdesivir Prone positioning, IV Lasix as needed, possible discharge in 1 to 2 days if stable Television [employer] recommendations noted and appreciated History Interval history: I have seen and examined the patient at the bedside this morning Isolation precautions and PPE protocol strictly followed Patient is on 3 L of nasal cannula oxygen Complains of mild shortness of breath Hospitalist Physical - Constitutional Vitals: Temp Pulse Resp BP Pulse Ox 98.0 F 83 18 147/76 95 07/31/21 11:31 07/31/21 11:31 07/31/21 11:31 07/31/21 11:31 07/31/21 14:49 General appearance: Present: no acute distress, well-nourished, obese - EENT Eyes: Present: PERRL, EOM intact - Neck Neck: Present: supple, normal ROM - Respiratory Respiratory effort: normal Respiratory: bilateral: diminished, rhonchi, negative: rales, wheezing - Cardiovascular Rhythm: regular Heart Sounds: Present: S1 & S2 - Extremities Extremities: no ischemia, No edema - Abdominal General gastrointestinal: soft, non-tender, non-distended, normal bowel sounds - Integumentary Integumentary: Present: clear, warm - Psychiatric Psychiatric: appropriate mood/affect, cooperative - Neurologic Neurologic: CNII-XII intact, moves all extremities Results - Labs CBC & Chem 7: 07/29/21 08:37 07/30/21 06:25 Labs: Laboratory Last Values WBC 7.7 K/mm3 (4.5-11.0) 07/29/21 08:37 RBC 4.58 M/mm3 (3.65-5.03) 07/29/21 08:37 Hgb 14.6 gm/dl (11.8-15.2) 07/29/21 08:37 Hct 43.1 % (35.5-45.6) 07/29/21 08:37 MCV 94 fl (84-94) 07/29/21 08:37 MCH 32 pg (28-32) 07/29/21 08:37 MCHC 34 % (32-34) 07/29/21 08:37 RDW 13.1 % (13.2-15.2) L 07/29/21 08:37 Plt Count 233 K/mm3 (140-440) 07/29/21 08:37 Lymph % (Auto) 31.9 % (13.4-35.0) 07/29/21 08:37 [place] % (Auto) 11.7 % (0.0-7.3) H 07/29/21 08:37 Eos % (Auto) 0.3 % (0.0-4.3) 07/29/21 08:37 Baso % (Auto) 0.3 % (0.0-1.8) 07/29/21 08:37 Lymph # (Auto) 2.5 K/mm3 (1.2-5.4) 07/29/21 08:37 [place] # (Auto) 0.9 K/mm3 (0.0-0.8) H 07/29/21 08:37 Eos # (Auto) 0.0 K/mm3 (0.0-0.4) 07/29/21 08:37 Baso # (Auto) 0.0 K/mm3 (0.0-0.1) 07/29/21 08:37 Seg Neutrophils % 55.8 % (40.0-70.0) 07/29/21 08:37 Seg Neutrophils # 4.3 K/mm3 (1.8-7.7) 07/29/21 08:37 D-Dimer 304.19 ng/mlDDU (0-234) H 07/30/21 06:25 Sodium 139 mmol/L (137-145) 07/30/21 06:25 Potassium 3.9 mmol/L (3.6-5.0) 07/30/21 06:25 Chloride 103.6 mmol/L (98-107) 07/30/21 06:25 Carbon Dioxide 25 mmol/L (22-30) 07/30/21 06:25 Anion Gap 14 mmol/L 07/30/21 06:25 BUN 20 mg/dL (9-20) 07/30/21 06:25 Creatinine 0.5 mg/dL (0.8-1.3) L 07/30/21 06:25 Estimated GFR > 60 ml/min 07/30/21 06:25 BUN/Creatinine Ratio 40 % 07/30/21 06:25 Glucose 153 mg/dL (75-100) H 07/30/21 06:25 POC Glucose 196 mg/dL (70-105) H 07/31/21 15:45 Hemoglobin A1c 7.4 % (4-6) H 07/27/21 07:04 Calcium 8.3 mg/dL (8.4-10.2) L 07/30/21 06:25 Ferritin 1421.0 ng/mL (30.0-300.0) H 07/30/21 06:25 Total Bilirubin 0.40 mg/dL (0.1-1.2) 07/30/21 06:25 Direct Bilirubin < 0.2 mg/dL (0-0.2) 07/27/21 07:09 Indirect Bilirubin 0.2 mg/dL 07/27/21 07:09 AST 46 units/L (5-40) H 07/30/21 06:25 ALT 61 units/L (7-56) H 07/30/21 06:25 Alkaline Phosphatase 68 units/L (35-129) 07/30/21 06:25 Lactate Dehydrogenase 372 units/L (91-180) H 07/30/21 06:25 C-Reactive Protein 6.60 mg/dL (0.00-1.30) H 07/30/21 06:25 Total Protein 7.3 g/dL (6.3-8.2) 07/30/21 06:25 Albumin 3.6 g/dL (3.9-5) L 07/30/21 06:25 Albumin/Globulin Ratio 1.0 % 07/30/21 06:25 Procalcitonin 0.08 ng/mL (<0.15) 07/28/21 07:00 Urine Color Yellow (Yellow) 07/27/21 13:50 Urine Turbidity Clear (Clear) 07/27/21 13:50 Urine pH 6.0 (5.0-7.0) 07/27/21 13:50 Ur Specific [place] 1.018 (1.003-1.030) 07/27/21 13:50 Urine Protein 30 mg/dl mg/dL (Negative) 07/27/21 13:50 Urine Glucose (UA) 50 mg/dL (Negative) 07/27/21 13:50 Urine Ketones Tr mg/dL (Negative) 07/27/21 13:50 Urine Blood Neg (Negative) 07/27/21 13:50 Urine Nitrite Neg (Negative) 07/27/21 13:50 Urine Bilirubin Neg (Negative) 07/27/21 13:50 Urine Urobilinogen < 2.0 mg/dL (<2.0) 07/27/21 13:50 Ur Leukocyte Esterase Neg (Negative) 07/27/21 13:50 Urine WBC (Auto) 3.0 /HPF (0.0-6.0) 07/27/21 13:50 Urine RBC (Auto) < 1.0 /HPF (0.0-6.0) 07/27/21 13:50 U Epithel Cells (Auto) < 1.0 /HPF (0-13.0) 07/27/21 13:50 Urine Mucus Few /HPF 07/27/21 13:50 Coronavirus (PCR) Positive (Negative) A 07/28/21 08:00 Microbiology: Microbiology 07/27/21 14:08 Peripheral/Venous Blood Culture - Preliminary NO GROWTH AFTER 4 DAYS 07/27/21 13:38 Peripheral/Venous Blood Culture - Preliminary NO GROWTH AFTER 4 DAYS Hogan/IV: Voiding Method Toilet Active Medications - Current Medications Current Medications: Generic Name Dose Route Start Last Admin Trade Name Freq PRN Reason Stop Dose Admin Acetaminophen 650 mg 07/27/21 11:21 07/30/21 22:04 Acetaminophen 325 Mg Tab PO 650 mg Q4H PRN Administration Pain MILD(1-3)/Fever >100.5/ROSA Albuterol 2.5 mg 07/27/21 11:21 Albuterol 2.5 Mg/3 Ml Nebu IH Q4HRT PRN Shortness Of Breath Amlodipine Besylate 5 mg 07/30/21 22:30 07/31/21 09:19 Amlodipine 5 Mg Tab PO 5 mg QDAY MATIAS Administration Dexamethasone 6 mg 07/27/21 12:00 07/31/21 11:10 Dexamethasone 4 Mg/Ml Vial IV 08/06/21 11:59 6 mg Q24H MATIAS Administration Dextrose 50 ml 07/27/21 11:24 Dextrose 50% In Water (25gm) 50 Ml Syringe IV Q30MIN PRN Hypoglycemia Protocol Enoxaparin Sodium 40 mg 07/27/21 12:00 07/31/21 09:19 Enoxaparin 40 Mg/0.4 Ml Inj SUB-Q 40 mg QDAY MATIAS Administration REMDESIVIR 100 mg/ Sodium 250 mls @ 500 mls/hr 07/28/21 21:00 07/30/21 22:03 Chloride IV 07/31/21 21:29 500 mls/hr Q24HR@2100 MATIAS Administration Insulin Glargine 10 units 07/27/21 22:00 07/30/21 23:27 Insulin Glargine 100 Units/Ml SUB-Q 10 units QHS MATIAS Administration Insulin Human Lispro 0 unit 07/27/21 11:30 07/31/21 16:06 Insulin Lispro 100 Unit/Ml SUB-Q 2 unit ACHS MATIAS Administration Protocol Ondansetron HCl 4 mg 07/27/21 11:21 Ondansetron 4 Mg/2 Ml Inj IV Q8H PRN Nausea And Vomiting Sodium Chloride 10 ml 07/27/21 22:00 07/31/21 09:20 Sodium Chloride 0.9% 10 Ml Flush Syringe IV 10 ml BID MATIAS Administration Sodium Chloride 10 ml 07/27/21 11:21 Sodium Chloride 0.9% 10 Ml Flush Syringe IV PRN PRN LINE FLUSH Sodium Chloride 50 ml 07/27/21 14:00 07/30/21 22:03 Sodium Chloride 0.9% 50 Ml Ivpb IV 07/31/21 21:01 50 ml Q24HR@2100 MATIAS Administration
[2021-07-31] MEDS: REMDESIVIR 100 MG in SODIUM CHLORIDE 0.9% 250ML 250 ML IV SCH (22:28)
[2021-07-31] MEDS: SODIUM CHLORIDE 0.9% 50 ML IVPB IV SCH (22:29)
[2021-07-31] MEDS: INSULIN GLARGINE 100 UNITS/ML SUB-Q SCH (22:30)
[2021-08-01] MEDS: INSULIN LISPRO 100 UNIT/ML SUB-Q SCH ×3 (08:16→17:10)
[2021-08-01] MEDS: ENOXAPARIN 40 MG/0.4 ML INJ SUB-Q SCH (09:12)
[2021-08-01] MEDS: amLODIPine 5 MG TAB PO SCH (09:13)
--- NOTE | 2021-08-01 10:48 | Progress Note ---
Assessment and Plan - Patient Problems (1) Acute nausea with nonbilious vomiting Current Visit: Yes Status: Acute (2) Acute respiratory failure with hypoxia Current Visit: Yes Status: Acute (3) Pneumonia due to COVID-19 virus Current Visit: Yes Status: Acute Subjective Interval history: sitting up in bed Objective Vital Signs - 12hr 08/01/21 08/01/21 08/01/21 06:05 08:18 09:13 Temperature 98.0 F Pulse Rate 58 L Respiratory 18 Rate Blood Pressure 135/68 133/72 O2 Sat by Pulse 88 95 Oximetry Constitutional: no acute distress Eyes: non-icteric ENT: oropharynx moist Neck: supple Effort: normal Ascultation: Bilateral: diminished breath sounds Cardiovascular: regular rate and rhythm Gastrointestinal: normoactive bowel sounds, soft, non-tender, non-distended CBC and BMP: 07/29/21 08:37 07/30/21 06:25 ABG, PT/INR, D-dimer: PT/INR, D-dimer D-Dimer 304.19 ng/mlDDU (0-234) H 07/30/21 06:25 Abnormal lab findings: Abnormal Labs 07/27/21 07/27/21 07/27/21 07:04 07:04 07:04 RDW 12.6 L Upson % (Auto) 7.7 H Upson # (Auto) Seg Neutrophils % 70.6 H D-Dimer Sodium 133 L Carbon Dioxide 21 L Creatinine 0.7 L Glucose 179 H POC Glucose Hemoglobin A1c 7.4 H Calcium 8.3 L Ferritin AST ALT Lactate Dehydrogenase C-Reactive Protein Albumin Coronavirus (PCR) 07/27/21 07/27/21 07/27/21 07:09 12:19 16:27 RDW Upson % (Auto) Upson # (Auto) Seg Neutrophils % D-Dimer Sodium Carbon Dioxide Creatinine Glucose POC Glucose 129 H 168 H Hemoglobin A1c Calcium Ferritin AST 41 H ALT 60 H Lactate Dehydrogenase C-Reactive Protein Albumin 3.5 L Coronavirus (PCR) 07/27/21 07/28/21 07/28/21 21:57 05:38 07:00 RDW 13.1 L Upson % (Auto) 13.8 H Upson # (Auto) Seg Neutrophils % D-Dimer Sodium Carbon Dioxide Creatinine Glucose POC Glucose 212 H 156 H Hemoglobin A1c Calcium Ferritin AST ALT Lactate Dehydrogenase C-Reactive Protein Albumin Coronavirus (PCR) 07/28/21 07/28/21 07/28/21 07:00 07:00 07:00 RDW Upson % (Auto) Upson # (Auto) Seg Neutrophils % D-Dimer 364.54 H Sodium Carbon Dioxide Creatinine 0.5 L Glucose 151 H POC Glucose Hemoglobin A1c Calcium 8.2 L Ferritin 1653.0 H AST 47 H ALT 57 H Lactate Dehydrogenase C-Reactive Protein 15.80 H Albumin 3.8 L Coronavirus (PCR) 07/28/21 07/28/21 07/28/21 07:50 08:00 11:07 RDW Upson % (Auto) Upson # (Auto) Seg Neutrophils % D-Dimer Sodium Carbon Dioxide Creatinine Glucose POC Glucose 138 H 151 H Hemoglobin A1c Calcium Ferritin AST ALT Lactate Dehydrogenase C-Reactive Protein Albumin Coronavirus (PCR) Positive A 07/28/21 07/28/21 07/28/21 15:10 21:14 21:39 RDW Upson % (Auto) Upson # (Auto) Seg Neutrophils % D-Dimer Sodium Carbon Dioxide Creatinine Glucose POC Glucose 127 H 140 H 146 H Hemoglobin A1c Calcium Ferritin AST ALT Lactate Dehydrogenase C-Reactive Protein Albumin Coronavirus (PCR) 07/29/21 07/29/21 07/29/21 06:05 08:37 08:37 RDW 13.1 L Upson % (Auto) 11.7 H Upson # (Auto) 0.9 H Seg Neutrophils % D-Dimer 374.09 H Sodium Carbon Dioxide Creatinine 0.6 L Glucose 101 H POC Glucose Hemoglobin A1c Calcium Ferritin AST 51 H ALT 59 H Lactate Dehydrogenase C-Reactive Protein Albumin 3.7 L Coronavirus (PCR) 07/29/21 07/29/21 07/29/21 08:37 08:37 21:03 RDW Upson % (Auto) Upson # (Auto) Seg Neutrophils % D-Dimer Sodium Carbon Dioxide Creatinine Glucose POC Glucose 202 H Hemoglobin A1c Calcium Ferritin 1601.0 H AST ALT Lactate Dehydrogenase 527 H C-Reactive Protein 7.60 H Albumin Coronavirus (PCR) 07/30/21 07/30/21 07/30/21 06:25 06:25 06:25 RDW Upson % (Auto) Upson # (Auto) Seg Neutrophils % D-Dimer 304.19 H Sodium Carbon Dioxide Creatinine 0.5 L Glucose 153 H POC Glucose Hemoglobin A1c Calcium 8.3 L Ferritin 1421.0 H AST 46 H ALT 61 H Lactate Dehydrogenase 372 H C-Reactive Protein 6.60 H Albumin 3.6 L Coronavirus (PCR) 07/30/21 07/30/21 07/30/21 10:59 15:51 22:12 RDW Upson % (Auto) Upson # (Auto) Seg Neutrophils % D-Dimer Sodium Carbon Dioxide Creatinine Glucose POC Glucose 231 H 149 H 218 H Hemoglobin A1c Calcium Ferritin AST ALT Lactate Dehydrogenase C-Reactive Protein Albumin Coronavirus (PCR) 07/31/21 07/31/21 07/31/21 07:19 10:44 15:45 RDW Upson % (Auto) Upson # (Auto) Seg Neutrophils % D-Dimer Sodium Carbon Dioxide Creatinine Glucose POC Glucose 168 H 247 H 196 H Hemoglobin A1c Calcium Ferritin AST ALT Lactate Dehydrogenase C-Reactive Protein Albumin Coronavirus (PCR) 07/31/21 08/01/21 21:56 07:49 RDW Upson % (Auto) Upson # (Auto) Seg Neutrophils % D-Dimer Sodium Carbon Dioxide Creatinine Glucose POC Glucose 248 H 153 H Hemoglobin A1c Calcium Ferritin AST ALT Lactate Dehydrogenase C-Reactive Protein Albumin Coronavirus (PCR)
[2021-08-01] MEDS: dexAMETHasone 4 MG/ML VIAL IV SCH ×2 (13:39→13:40)
--- NOTE | 2021-08-01 14:57 | Discharge Summary ---
Providers - Providers Date of Admission: 07/27/21 10:31 Date of discharge: 08/01/21 Attending physician: ASHANTI MANZANARES 07/27/21 11:21 Consult to Physician [CONS] Routine Comment: Consulting Provider: DAVID PALACIOS Physician Instructions: Reason For Exam: covid 19 pneumonia 07/28/21 07:49 Consult to Case Management [CONS] Routine Services Needed at Discharge: Home O2 Notified:: CM 07/29/21 13:13 Consult to Physician [CONS] Routine Comment: Consulting Provider: JACQUI BASHIR Physician Instructions: Reason For Exam: covid 19 pna Primary care physician: [employer] Hospitalization Reason for admission: Shortness of breath, fever and generalized weakness Condition: Stable Pertinent studies: Chest x-ray 07/27/2021; bilateral lung opacities concerning for atypical pneumonia Follow-up chest x-ray 07/30/2021; moderate patchy airspace opacities unchanged Hospital course: 60-year-old male with past medical history of hypertension, morbid obesity, unvaccinated for COVID-19 status presenting to the emergency department with complaint of increased shortness of breath. Patient states that symptoms started approximately 13 to 14 days ago. He tested positive for coronavirus at the time. He was advised to stay at home and recover by the physician that aleyda luated him. His symptoms have only gotten worse. Patient states that he has chest pain with inspiration, difficulty with exertion, unremitting fevers. On encounter, patient was resting comfortably. He stated he was feeling better than upon arrival. Patient did not receive COVID-19 vaccination. Patient was admitted as PUI with hypoxia requiring supplemental oxygen 3 to 4 L from the day of admission, [place] PCR test is positive on 07/28/2021, managed appropriately per COVID-19 CDC guidelines, evaluated by ID ,patient received dexamethasone, remdesivir , inflammatory markers closely monitored, patient was encouraged prone positioning, continue to require 3 L of nasal cannula oxygen Today patient is comfortable, home O2 evaluation showed that patient requires 3 L of nasal cannula oxygen upon discharge. Case management has set up home oxygen., Patient is hemodynamically and clinically stable at discharge. Patient was given strict instructions about isolation precautions PPE protocols as well as other CDC guidelines. And advised to follow primary care physician per schedule Stable at discharge Discharge diagnosis; --Acute hypoxic respiratory failure Hypoxic on admission, currently requiring 2 L nasal cannula Etiology likely COVID-19 pneumonia Continuous telemetry and O2 saturation monitoring ordered if patient worsens will consider pulm consultation. --COVID-19 pneumonia CXR findings of bilateral lung opacities concerning for atypical pneumonia. prophylactic anticoagulation based on d-dimer per hospital protocol Procalcitonin is low, empiric antibiotics discontinued Follow inflammatory markers Continue Decadron 6 mg IV daily x10 days ordered Remdesivir IV x 5 days ID evaluated the patient and signed off --Hypertension Well-controlled, continue current antihypertensives And as needed hydralazine --Transaminitis Liver markers slightly elevated on admission likely due to Covid related We will trend on serial hepatic panel --Type 2 diabetes with hyperglycemia Hemoglobin A1c 7.4 Accu-Chek sliding scale coverage ADA diet long-acting insulin Lantus 10 units nightly --Morbid obesity BMI 38.0 Advised diet modification exercise as tolerated and weight reduction When medically stable, patient verbalized understanding Stable at discharge with home oxygen 3 L nasal cannula oxygen Case management assisted with discharge planning Disposition: 01 HOME / SELF CARE / HOMELESS Final Discharge Diagnosis (Prints w/discharge instructions): COVID-19 pneumonia. Acute hypoxic respiratory failure. 3 to 4 L nasal cannula home oxygen. COVID- 19 pneumonia. Hypertension. Diabetes mellitus. Transaminitis. Morbid obesity BMI 38.3 Time spent for discharge: 35 min Core Measure Documentation - Palliative Care Palliative Care/ Comfort Measures: Not Applicable - Core Measures Any of the following diagnoses?: none Exam - Constitutional Vitals: Temp Pulse Resp BP Pulse Ox 98.0 F 58 L 18 133/72 95 08/01/21 06:05 08/01/21 06:05 08/01/21 06:05 08/01/21 09:13 08/01/21 08:18 General appearance: Present: no acute distress, well-nourished, obese (Morbidly obese) - EENT Eyes: Present: PERRL, EOM intact - Neck Neck: Present: supple, normal ROM - Respiratory Respiratory effort: normal Respiratory: bilateral: diminished, negative: rales, rhonchi, wheezing - Cardiovascular Rhythm: regular Heart Sounds: Present: S1 & S2 - Extremities Extremities: no ischemia, No edema - Abdominal General gastrointestinal: Present: soft, non-tender, non-distended, normal bowel sounds - Integumentary Integumentary: Present: clear, warm - Musculoskeletal Musculoskeletal: strength equal bilaterally, generalized weakness - Psychiatric Psychiatric: appropriate mood/affect, cooperative - Neurologic Neurologic: moves all extremities Plan Activity: advance as tolerated Diet: diabetic Additional Instructions: Advised to follow-up diabetic diet , follow primary care physician in 1 week. Advised to follow COVID-19 isolation precautions and protocols per CDC guidelines. Advised to use Home oxygen 3 L via nasal cannula. Advised diet modification, exercise as tolerated and weight reduction when medically stable. If you have worsening symptoms contact MD or go to the nearest emergency room as needed Follow up with: PRIMARY CARE,MD [Primary Care Provider] - 3-5 Days Prescriptions: Dexamethasone 6 mg PO DAILY #5 tablet metFORMIN [Glucophage] 500 mg PO QDAY #30 tab Albuterol Mdi (or & Nicu Only) [ProAir HFA Inhaler] 2 puff IH QID PRN #8.5 gram PRN Reason: Shortness Of Breath Ascorbic Acid [Vitamin C chew] 500 mg PO BID #30 tab.chew Cholecalciferol Vit D3 [Vitamin D3 1,000 UNIT TAB] 1,000 unit PO QDAY #15 tablet Zinc Sulfate [Zinc] 220 mg PO BID #30 tablet Azithromycin [Zithromax TAB] 250 mg PO QDAY 3 Days #3 tablet Other Discharge Orders: Glucometer (Amb) Location: None Selected Glucometer supplies[Amb] Location: None Selected
[2021-08-01 15:38] VITALS: BP 143/79
== END 2021-08-01 17:05 | disposition home or self-care (01) | DRG 177 ==
LOC: ED 06:20 → 3A 10:31
PROVIDERS: ADMIT Internal Medicine; ATTEND Internal Medicine
PROC: XW033E5 Introduction of Remdesivir Anti-infective into Peripheral Vein, Percutaneous Approach, New Technology Group 5 (ICD-10-PCS; principal; 2021-07-27)
DX: U07.1 COVID-19 (principal); J96.01 Acute respiratory failure with hypoxia; J12.82 Pneumonia due to coronavirus disease 2019; I10 Essential (primary) hypertension; E66.01 Morbid (severe) obesity due to excess calories; Z68.38 Body mass index [BMI] 38.0-38.9, adult; Z90.49 Acquired absence of other specified parts of digestive tract; E11.65 Type 2 diabetes mellitus with hyperglycemia
CPT/HCPCS: 36415; 71045; 71046; 80048; 80053; 80076; 81001; 82728; 82962; 83036; 83615; 84145; 85025; 85379; 86140; 87040; 93005; 94760; G0378; J0456; J0696; J1100; J1650; J1815; J1940; J2405; J7030; J7050; U0003